=== PATIENT | male | born 1935 | race Caucasian/White ===

== ENCOUNTER 2019-11-10 04:55 | Outpatient (RCR) | payer MEDICARE, SELFPAY ==
[2019-11-10 09:11] LABS: Abs Immature Grans 0.01 k/cumm (0.0-0.09); Absolute Basophil Count 0.04 k/cumm (0.0-0.2); Absolute Eosinophil Count 0.17 k/cumm (0.0-0.7); Absolute Lymphocyte Count 2.55 k/cumm (1.2-3.4); Absolute Monocyte Count 0.74 k/cumm (0.11-0.7); Absolute Neutrophil Count 1.55 k/cumm (1.2-6.7); Basophils % 0.8; Eosinophils % 3.4; HCT 37.3 % (40.0-50.0); HGB 12.4 g/dL (13.5-17.5); Immature Grans % 0.2; Lymphocytes % 50.4; Mean Corp. HGB Concentration 33.2 g/dL (32.0-36.0); Mean Corpuscular Volume 90.1 fL (80-95); Mean Platelet Volume 9.3 fL (8.0-11.0); Monocytes % 14.6; Neutrophils % 30.6; Platelet Count 202 x1000/uL (130-400); RBC 4.14 m/cumm (4.50-6.00); RBC Distribution Width 14.7 % (11.8-14.1); White Blood Cell Count 5.06 k/cumm (4.4-10.8)
[2019-11-10] MEDS: Normal Saline Flush 10 ML SYR IVP (09:11)
[2019-11-10 09:28] LABS: ALT 21 U/L (16-63); AST 23 U/L (15-37); Albumin 2.9 g/dL (3.4-5.0); Alkaline Phosphatase 52 U/L (46-116); Anion Gap 7.5 mmol/L (3-11); BUN 26 mg/dL (7-18); Bilirubin, Total 0.5 mg/dL (0.2-1.0); CO2 28.5 mmol/L (21.0-32.0); CREATININE 1.01 mg/dL (0.70-1.30); Calcium 8.6 mg/dL (8.5-10.1); Chloride 104 mmol/L (98-107); Glucose 105 mg/dL (74-106); Potassium 3.3 mmol/L (3.5-5.1); Sodium 140 mmol/L (136-145); Total Protein 6.8 g/dL (6.4-8.2)
[2019-11-10 09:29] LABS: Diff Comment Diff Reviewed; RBC Morphology Normal
[2019-11-13 12:29] LABS: CEA 38.1 ng/mL (See Note)
== END 2019-11-14 23:59 | disposition home or self-care (01) ==
LOC: INF 04:55
PROVIDERS: PCP Family Medicine; Visit Provider Internal Medicine Hematology & Oncology
DX: C20 Malignant neoplasm of rectum (principal); Z45.2 Encounter for adjustment and management of vascular access device
CPT/HCPCS: 36591; 80053; 82378; 85025

== ENCOUNTER 2019-12-08 05:22 | Outpatient (RCR) | payer MEDICARE, SELFPAY ==
[2019-11-24] MEDS: Normal Saline Flush 10 ML SYR IVP (10:24)
[2019-11-24 10:52] LABS: Abs Immature Grans 0.01 k/cumm (0.0-0.09); Absolute Basophil Count 0.04 k/cumm (0.0-0.2); Absolute Eosinophil Count 0.15 k/cumm (0.0-0.7); Absolute Lymphocyte Count 3.41 k/cumm (1.2-3.4); Absolute Monocyte Count 0.69 k/cumm (0.11-0.7); Absolute Neutrophil Count 1.33 k/cumm (1.2-6.7); Basophils % 0.7; Eosinophils % 2.7; HCT 38.2 % (40.0-50.0); HGB 12.6 g/dL (13.5-17.5); Immature Grans % 0.2 %; Lymphocytes % 60.6; Mean Corpuscular Hemoglobin 30.1 pg (27.0-33.0); Mean Corpuscular Volume 91.4 fL (80-95); Mean Platelet Volume 9.2 fL (8.0-11.0); Monocytes % 12.3; Neutrophils % 23.5; Platelet Count 165 x1000/uL (130-400); RBC 4.18 m/cumm (4.50-6.00); RBC Distribution Width 15.5 % (11.8-14.1); White Blood Cell Count 5.63 k/cumm (4.4-10.8)
[2019-11-24 11:04] LABS: ALT 25 U/L (16-63); AST 21 U/L (15-37); Albumin 3.2 g/dL (3.4-5.0); Alkaline Phosphatase 54 U/L (46-116); Anion Gap 8.7 mmol/L (3-11); BUN 19 mg/dL (7-18); Bilirubin, Total 0.4 mg/dL (0.2-1.0); CO2 28.3 mmol/L (21.0-32.0); CREATININE 1.13 mg/dL (0.70-1.30); Calcium 8.9 mg/dL (8.5-10.1); Chloride 105 mmol/L (98-107); Glucose 111 mg/dL (74-106); Potassium 3.8 mmol/L (3.5-5.1); Sodium 142 mmol/L (136-145); Total Protein 6.9 g/dL (6.4-8.2)
[2019-11-27 12:26] LABS: CEA 18.4 ng/mL (See Note)
[2019-12-08] MEDS: Normal Saline Flush 10 ML SYR IVP (09:23)
[2019-12-08 09:37] LABS: Abs Immature Grans 0.01 k/cumm (0.0-0.09); Absolute Basophil Count 0.03 k/cumm (0.0-0.2); Absolute Eosinophil Count 0.08 k/cumm (0.0-0.7); Absolute Lymphocyte Count 3.09 k/cumm (1.2-3.4); Absolute Monocyte Count 0.85 k/cumm (0.11-0.7); Absolute Neutrophil Count 1.22 k/cumm (1.2-6.7); Basophils % 0.6; Eosinophils % 1.5; HGB 12.2 g/dL (13.5-17.5); Immature Grans % 0.2 %; Lymphocytes % 58.5; Mean Corpuscular Volume 91.1 fL (80-95); Mean Platelet Volume 8.9 fL (8.0-11.0); Monocytes % 16.1; Neutrophils % 23.1; Platelet Count 148 x1000/uL (130-400); RBC 4.06 m/cumm (4.50-6.00); RBC Distribution Width 16.1 % (11.8-14.1); White Blood Cell Count 5.28 k/cumm (4.4-10.8)
[2019-12-08 09:46] LABS: ALT 26 U/L (16-63); AST 23 U/L (15-37); Albumin 3.1 g/dL (3.4-5.0); Alkaline Phosphatase 49 U/L (46-116); Anion Gap 7.1 mmol/L (3-11); BUN 18 mg/dL (7-18); Bilirubin, Total 0.5 mg/dL (0.2-1.0); CO2 28.9 mmol/L (21.0-32.0); CREATININE 0.92 mg/dL (0.70-1.30); Chloride 105 mmol/L (98-107); Glucose 107 mg/dL (74-106); Potassium 3.9 mmol/L (3.5-5.1); Sodium 141 mmol/L (136-145); Total Protein 6.8 g/dL (6.4-8.2)
[2019-12-11 11:05] LABS: CEA 8.7 ng/mL (See Note)
== END 2019-12-15 23:59 | disposition home or self-care (01) ==
LOC: INF 05:22
PROVIDERS: PCP Family Medicine; Visit Provider Internal Medicine Hematology & Oncology
DX: C20 Malignant neoplasm of rectum (principal); Z45.2 Encounter for adjustment and management of vascular access device
CPT/HCPCS: 36591; 80053; 82378; 85025

== ENCOUNTER 2020-01-12 04:31 | Outpatient (RCR) | payer MEDICARE, SELFPAY ==
[2019-12-22] MEDS: Normal Saline Flush 10 ML SYR IVP (08:21)
[2019-12-22 08:31] LABS: Abs Immature Grans 0.01 k/cumm (0.0-0.09); Absolute Basophil Count 0.04 k/cumm (0.0-0.2); Absolute Eosinophil Count 0.09 k/cumm (0.0-0.7); Absolute Lymphocyte Count 2.69 k/cumm (1.2-3.4); Absolute Monocyte Count 0.64 k/cumm (0.11-0.7); Absolute Neutrophil Count 0.81 k/cumm (1.2-6.7); Basophils % 0.9; Eosinophils % 2.1; HCT 37.9 % (40.0-50.0); HGB 12.6 g/dL (13.5-17.5); Immature Grans % 0.2 %; Lymphocytes % 62.9; Mean Corp. HGB Concentration 33.2 g/dL (32.0-36.0); Mean Corpuscular Hemoglobin 30.4 pg (27.0-33.0); Mean Corpuscular Volume 91.5 fL (80-95); Mean Platelet Volume 9.2 fL (8.0-11.0); Neutrophils % 18.9; Platelet Count 134 x1000/uL (130-400); RBC 4.14 m/cumm (4.50-6.00); RBC Distribution Width 16.9 % (11.8-14.1); White Blood Cell Count 4.28 k/cumm (4.4-10.8)
[2019-12-22 08:47] LABS: ALT 33 U/L (16-63); AST 28 U/L (15-37); Albumin 3.2 g/dL (3.4-5.0); Alkaline Phosphatase 43 U/L (46-116); Anion Gap 10.8 mmol/L (3-11); BUN 19 mg/dL (7-18); Bilirubin, Total 0.4 mg/dL (0.2-1.0); CO2 26.2 mmol/L (21.0-32.0); CREATININE 1.06 mg/dL (0.70-1.30); Calcium 8.6 mg/dL (8.5-10.1); Chloride 103 mmol/L (98-107); Glucose 99 mg/dL (74-106); Potassium 3.7 mmol/L (3.5-5.1); Sodium 140 mmol/L (136-145); Total Protein 7.1 g/dL (6.4-8.2)
[2019-12-22 09:11] LABS: Diff Comment Diff Reviewed; RBC Morphology Normal
[2019-12-25 09:58] LABS: CEA 3.8 ng/mL (See Note)
[2019-12-29 08:03] LABS: Abs Immature Grans 0.07 k/cumm (0.0-0.09); Absolute Basophil Count 0.06 k/cumm (0.0-0.2); Absolute Eosinophil Count 0.15 k/cumm (0.0-0.7); Absolute Monocyte Count 1.12 k/cumm (0.11-0.7); Eosinophils % 2.5; HCT 38.7 % (40.0-50.0); HGB 12.8 g/dL (13.5-17.5); Immature Grans % 1.2 %; Lymphocytes % 56.7; Mean Corp. HGB Concentration 33.1 g/dL (32.0-36.0); Mean Corpuscular Hemoglobin 30.3 pg (27.0-33.0); Mean Corpuscular Volume 91.7 fL (80-95); Mean Platelet Volume 9.1 fL (8.0-11.0); Monocytes % 18.7; Neutrophils % 19.9; Platelet Count 207 x1000/uL (130-400); RBC 4.22 m/cumm (4.50-6.00); RBC Distribution Width 17.6 % (11.8-14.1)
[2019-12-29] MEDS: Normal Saline Flush 10 ML SYR IVP (08:06)
[2019-12-29 08:21] LABS: ALT 30 U/L (16-63); AST 23 U/L (15-37); Albumin 3.3 g/dL (3.4-5.0); Alkaline Phosphatase 49 U/L (46-116); Anion Gap 8.4 mmol/L (3-11); BUN 19 mg/dL (7-18); Bilirubin, Total 0.5 mg/dL (0.2-1.0); CO2 28.6 mmol/L (21.0-32.0); CREATININE 1.01 mg/dL (0.70-1.30); Calcium 9.2 mg/dL (8.5-10.1); Chloride 105 mmol/L (98-107); Glucose 108 mg/dL (74-106); Potassium 3.4 mmol/L (3.5-5.1); Sodium 142 mmol/L (136-145); Total Protein 7.3 g/dL (6.4-8.2)
[2020-01-01 11:10] LABS: CEA 2.9 ng/mL (See Note)
[2020-01-12] MEDS: Normal Saline Flush 10 ML SYR IVP (07:17)
[2020-01-12 07:18] LABS: Abs Immature Grans 0.01 k/cumm (0.0-0.09); Absolute Basophil Count 0.03 k/cumm (0.0-0.2); Absolute Eosinophil Count 0.22 k/cumm (0.0-0.7); Absolute Lymphocyte Count 2.64 k/cumm (1.2-3.4); Absolute Monocyte Count 0.72 k/cumm (0.11-0.7); Absolute Neutrophil Count 1.68 k/cumm (1.2-6.7); Basophils % 0.6; Eosinophils % 4.2; HCT 37.4 % (40.0-50.0); HGB 12.5 g/dL (13.5-17.5); Immature Grans % 0.2 %; Lymphocytes % 49.8; Mean Corp. HGB Concentration 33.4 g/dL (32.0-36.0); Mean Corpuscular Hemoglobin 31.1 pg (27.0-33.0); Mean Platelet Volume 9.5 fL (8.0-11.0); Monocytes % 13.6; Neutrophils % 31.6; Platelet Count 135 x1000/uL (130-400); RBC 4.02 m/cumm (4.50-6.00); RBC Distribution Width 17.7 % (11.8-14.1)
[2020-01-12 07:24] LABS: ALT 34 U/L (16-63); AST 29 U/L (15-37); Albumin 3.3 g/dL (3.4-5.0); Alkaline Phosphatase 43 U/L (46-116); Anion Gap 8.7 mmol/L (3-11); BUN 16 mg/dL (7-18); Bilirubin, Total 0.4 mg/dL (0.2-1.0); CO2 26.3 mmol/L (21.0-32.0); CREATININE 1.06 mg/dL (0.70-1.30); Calcium 8.1 mg/dL (8.5-10.1); Chloride 104 mmol/L (98-107); Glucose 111 mg/dL (74-106); Potassium 3.7 mmol/L (3.5-5.1); Sodium 139 mmol/L (136-145); Total Protein 7.2 g/dL (6.4-8.2)
[2020-01-15 09:39] LABS: CEA 1.9 ng/mL (See Note)
== END 2020-01-13 23:59 | disposition home or self-care (01) ==
LOC: INF 04:31
PROVIDERS: PCP Family Medicine; Visit Provider Internal Medicine Hematology & Oncology
DX: C20 Malignant neoplasm of rectum (principal); Z45.2 Encounter for adjustment and management of vascular access device
CPT/HCPCS: 36591; 80053; 82378; 85025

== ENCOUNTER 2020-02-09 03:45 | Outpatient (RCR) | payer MEDICARE, SELFPAY ==
[2020-01-26] MEDS: Normal Saline Flush 10 ML SYR IVP (09:32)
[2020-01-26 09:44] LABS: Absolute Basophil Count 0.03 k/cumm (0.0-0.2); Absolute Eosinophil Count 0.07 k/cumm (0.0-0.7); Absolute Lymphocyte Count 2.16 k/cumm (1.2-3.4); Absolute Monocyte Count 0.72 k/cumm (0.11-0.7); Basophils % 0.7; Eosinophils % 1.7; HCT 38.2 % (40.0-50.0); HGB 12.6 g/dL (13.5-17.5); Lymphocytes % 52.9; Mean Corpuscular Volume 93.9 fL (80-95); Mean Platelet Volume 9.1 fL (8.0-11.0); Monocytes % 17.6; Neutrophils % 27.1; Platelet Count 126 x1000/uL (130-400); RBC 4.07 m/cumm (4.50-6.00); RBC Distribution Width 17.6 % (11.8-14.1); White Blood Cell Count 4.08 k/cumm (4.4-10.8)
[2020-01-26 09:47] LABS: Absolute Neutrophil Count 1.11 k/cumm (1.2-6.7)
[2020-01-26 09:56] LABS: ALT 34 U/L (16-63); AST 26 U/L (15-37); Albumin 3.3 g/dL (3.4-5.0); Alkaline Phosphatase 51 U/L (46-116); Anion Gap 6.4 mmol/L (3-11); BUN 19 mg/dL (7-18); Bilirubin, Total 0.6 mg/dL (0.2-1.0); CO2 30.6 mmol/L (21.0-32.0); CREATININE 1.03 mg/dL (0.70-1.30); Chloride 102 mmol/L (98-107); Glucose 125 mg/dL (74-106); Potassium 3.6 mmol/L (3.5-5.1); Sodium 139 mmol/L (136-145); Total Protein 7.4 g/dL (6.4-8.2)
[2020-01-29 11:08] LABS: CEA 1.7 ng/mL (See Note)
[2020-02-02 09:43] LABS: Abs Immature Grans 0.01 k/cumm (0.0-0.09); Absolute Basophil Count 0.04 k/cumm (0.0-0.2); Absolute Lymphocyte Count 3.04 k/cumm (1.2-3.4); Absolute Monocyte Count 0.75 k/cumm (0.11-0.7); Absolute Neutrophil Count 0.97 k/cumm (1.2-6.7); Basophils % 0.8; HGB 12.6 g/dL (13.5-17.5); Immature Grans % 0.2 %; Lymphocytes % 61.9; Mean Corp. HGB Concentration 34.1 g/dL (32.0-36.0); Mean Corpuscular Hemoglobin 32.1 pg (27.0-33.0); Mean Corpuscular Volume 94.4 fL (80-95); Mean Platelet Volume 9.4 fL (8.0-11.0); Monocytes % 15.3; Neutrophils % 19.8; Platelet Count 203 x1000/uL (130-400); RBC 3.92 m/cumm (4.50-6.00); RBC Distribution Width 17.3 % (11.8-14.1); White Blood Cell Count 4.91 k/cumm (4.4-10.8)
[2020-02-02 09:54] LABS: ALT 34 U/L (16-63); AST 30 U/L (15-37); Albumin 3.1 g/dL (3.4-5.0); Alkaline Phosphatase 51 U/L (46-116); BUN 20 mg/dL (7-18); Bilirubin, Total 0.4 mg/dL (0.2-1.0); CREATININE 1.08 mg/dL (0.70-1.30); Calcium 8.6 mg/dL (8.5-10.1); Chloride 104 mmol/L (98-107); Glucose 115 mg/dL (74-106); Potassium 3.3 mmol/L (3.5-5.1); Sodium 142 mmol/L (136-145); Total Protein 7.5 g/dL (6.4-8.2)
[2020-02-02] MEDS: Normal Saline Flush 10 ML SYR IVP (10:03)
[2020-02-05 11:06] LABS: CEA 1.3 ng/mL (See Note)
[2020-02-09] MEDS: Normal Saline Flush 10 ML SYR IVP (09:35)
[2020-02-09 10:11] LABS: Abs Immature Grans 0.03 k/cumm (0.0-0.09); Absolute Basophil Count 0.02 k/cumm (0.0-0.2); Absolute Lymphocyte Count 2.96 k/cumm (1.2-3.4); Absolute Monocyte Count 0.82 k/cumm (0.11-0.7); Absolute Neutrophil Count 2.43 k/cumm (1.2-6.7); Basophils % 0.3; Eosinophils % 1.6; HCT 39.4 % (40.0-50.0); HGB 13.2 g/dL (13.5-17.5); Immature Grans % 0.5 %; Lymphocytes % 46.5; Mean Corp. HGB Concentration 33.5 g/dL (32.0-36.0); Mean Corpuscular Volume 95.4 fL (80-95); Mean Platelet Volume 9.2 fL (8.0-11.0); Monocytes % 12.9; Neutrophils % 38.2; Platelet Count 204 x1000/uL (130-400); RBC 4.13 m/cumm (4.50-6.00); RBC Distribution Width 16.9 % (11.8-14.1); White Blood Cell Count 6.36 k/cumm (4.4-10.8)
[2020-02-09 10:27] LABS: ALT 36 U/L (16-63); AST 29 U/L (15-37); Albumin 3.3 g/dL (3.4-5.0); Alkaline Phosphatase 51 U/L (46-116); Anion Gap 9.5 mmol/L (3-11); BUN 20 mg/dL (7-18); Bilirubin, Total 0.4 mg/dL (0.2-1.0); CO2 28.5 mmol/L (21.0-32.0); CREATININE 1.02 mg/dL (0.70-1.30); Calcium 9.5 mg/dL (8.5-10.1); Chloride 103 mmol/L (98-107); Glucose 122 mg/dL (74-106); Potassium 3.8 mmol/L (3.5-5.1); Sodium 141 mmol/L (136-145); Total Protein 7.8 g/dL (6.4-8.2)
[2020-02-12 10:20] LABS: CEA 1.4 ng/mL (See Note)
== END 2020-02-13 23:59 | disposition home or self-care (01) ==
LOC: INF 03:45
PROVIDERS: PCP Family Medicine; Visit Provider Internal Medicine Hematology & Oncology
DX: C20 Malignant neoplasm of rectum (principal); Z45.2 Encounter for adjustment and management of vascular access device
CPT/HCPCS: 36591; 80053; 82378; 85025

== ENCOUNTER 2020-02-23 03:32 | Outpatient (RCR) | payer MEDICARE, SELFPAY ==
[2020-02-23] MEDS: Normal Saline Flush 10 ML SYR IVP (08:45)
[2020-02-23 08:51] LABS: Abs Immature Grans 0.09 k/cumm (0.0-0.09); Absolute Basophil Count 0.02 k/cumm (0.0-0.2); Absolute Eosinophil Count 0.15 k/cumm (0.0-0.7); Absolute Lymphocyte Count 2.74 k/cumm (1.2-3.4); Absolute Monocyte Count 1.11 k/cumm (0.11-0.7); Absolute Neutrophil Count 4.78 k/cumm (1.2-6.7); Basophils % 0.2; Eosinophils % 1.7; HCT 38.2 % (40.0-50.0); Lymphocytes % 30.8; Mean Corpuscular Hemoglobin 32.6 pg (27.0-33.0); Mean Corpuscular Volume 95.7 fL (80-95); Mean Platelet Volume 8.9 fL (8.0-11.0); Monocytes % 12.5; Neutrophils % 53.8; Platelet Count 125 x1000/uL (130-400); RBC 3.99 m/cumm (4.50-6.00); RBC Distribution Width 16.6 % (11.8-14.1); White Blood Cell Count 8.89 k/cumm (4.4-10.8)
[2020-02-23 09:06] LABS: ALT 39 U/L (16-63); AST 32 U/L (15-37); Albumin 3.3 g/dL (3.4-5.0); Alkaline Phosphatase 89 U/L (46-116); Anion Gap 8.2 mmol/L (3-11); BUN 16 mg/dL (7-18); Bilirubin, Total 0.6 mg/dL (0.2-1.0); CO2 28.8 mmol/L (21.0-32.0); CREATININE 1.14 mg/dL (0.70-1.30); Calcium 9.1 mg/dL (8.5-10.1); Chloride 102 mmol/L (98-107); Glucose 119 mg/dL (74-106); Sodium 139 mmol/L (136-145); Total Protein 7.5 g/dL (6.4-8.2)
[2020-02-27 18:31] LABS: CEA 0.8 ng/mL (See Note)
== END 2020-03-14 23:59 | disposition home or self-care (01) ==
LOC: INF 03:32
PROVIDERS: PCP Family Medicine; Visit Provider Internal Medicine Hematology & Oncology
DX: C20 Malignant neoplasm of rectum (principal); Z45.2 Encounter for adjustment and management of vascular access device
CPT/HCPCS: 36591; 80053; 82378; 85025

== ENCOUNTER 2020-03-15 04:00 | Outpatient (RCR) | payer MEDICARE, SELFPAY | END 2020-04-14 23:59 | disposition home or self-care (01) | LOC: INF 04:00 | PROVIDERS: PCP Family Medicine; Visit Provider Internal Medicine Hematology & Oncology | DX: R69 Illness, unspecified (principal) ==

== ENCOUNTER 2020-05-10 04:16 | Outpatient (RCR) | payer MEDICARE, SELFPAY ==
[2020-04-26 10:10] LABS: Abs Immature Grans 0.01 k/cumm (0.0-0.09); HCT 33.3 % (40.0-50.0); HGB 10.8 g/dL (13.5-17.5); Mean Corp. HGB Concentration 32.4 g/dL (32.0-36.0); Mean Corpuscular Hemoglobin 30.5 pg (27.0-33.0); Mean Corpuscular Volume 94.1 fL (80-95); Mean Platelet Volume 8.7 fL (8.0-11.0); Platelet Count 234 x1000/uL (130-400); RBC 3.54 m/cumm (4.50-6.00); RBC Distribution Width 15.1 % (11.8-14.1); White Blood Cell Count 8.85 k/cumm (4.4-10.8)
[2020-04-26] MEDS: Normal Saline Flush 10 ML SYR IVP (10:20)
[2020-04-26 10:27] LABS: ALT 32 U/L (16-63); AST 32 U/L (15-37); Albumin 2.8 g/dL (3.4-5.0); Alkaline Phosphatase 67 U/L (46-116); Anion Gap 7.8 mmol/L (3-11); BUN 13 mg/dL (7-18); Bilirubin, Total 0.4 mg/dL (0.2-1.0); CO2 28.2 mmol/L (21.0-32.0); CREATININE 0.95 mg/dL (0.70-1.30); Calcium 8.7 mg/dL (8.5-10.1); Chloride 103 mmol/L (98-107); Glucose 107 mg/dL (74-106); Potassium 3.5 mmol/L (3.5-5.1); Sodium 139 mmol/L (136-145); Total Protein 7.4 g/dL (6.4-8.2)
[2020-04-26 10:49] LABS: Absolute Eosinophil Count 0.35 k/cumm (0.0-0.7); Absolute Lymphocyte Count 5.93 k/cumm (1.2-3.4); Absolute Monocyte Count 0.53 k/cumm (0.11-0.7); Absolute Neutrophil Count 2.04 k/cumm (1.2-6.7); Atypical Lymphocytes % 1; Diff Comment Manual Differential; RBC Morphology Normal
[2020-04-29 10:37] LABS: CEA 3.6 ng/mL (See Note)
[2020-05-10] MEDS: Heparin 500 UNITS/5 ML SYRINGE IV (10:01)
[2020-05-10] MEDS: Normal Saline Flush 10 ML SYR IVP (10:01)
[2020-05-10 10:11] LABS: Abs Immature Grans 0.03 k/cumm (0.0-0.09); Absolute Basophil Count 0.03 k/cumm (0.0-0.2); Absolute Eosinophil Count 0.14 k/cumm (0.0-0.7); Absolute Monocyte Count 0.92 k/cumm (0.11-0.7); Absolute Neutrophil Count 3.21 k/cumm (1.2-6.7); Basophils % 0.3; Eosinophils % 1.5; HCT 36.1 % (40.0-50.0); HGB 11.6 g/dL (13.5-17.5); Immature Grans % 0.3 %; Mean Corp. HGB Concentration 32.1 g/dL (32.0-36.0); Mean Corpuscular Hemoglobin 30.7 pg (27.0-33.0); Mean Corpuscular Volume 95.5 fL (80-95); Mean Platelet Volume 9.6 fL (8.0-11.0); Monocytes % 9.6; Neutrophils % 33.3; Platelet Count 138 x1000/uL (130-400); RBC 3.78 m/cumm (4.50-6.00); RBC Distribution Width 16.8 % (11.8-14.1); White Blood Cell Count 9.63 k/cumm (4.4-10.8)
[2020-05-10 10:25] LABS: ALT 31 U/L (16-63); AST 30 U/L (15-37); Albumin 3.1 g/dL (3.4-5.0); Alkaline Phosphatase 90 U/L (46-116); Anion Gap 9.6 mmol/L (3-11); BUN 19 mg/dL (7-18); Bilirubin, Total 0.4 mg/dL (0.2-1.0); CO2 27.4 mmol/L (21.0-32.0); CREATININE 1.15 mg/dL (0.70-1.30); Calcium 8.9 mg/dL (8.5-10.1); Chloride 103 mmol/L (98-107); Glucose 110 mg/dL (74-106); Potassium 4.1 mmol/L (3.5-5.1); Sodium 140 mmol/L (136-145); Total Protein 7.6 g/dL (6.4-8.2)
[2020-05-10 10:27] LABS: Diff Comment Agrees w/ Instrument; Polychromasia Present
== END 2020-05-14 23:59 | disposition home or self-care (01) ==
LOC: INF 04:16
PROVIDERS: Internal Medicine Hematology & Oncology; PCP Family Medicine; Visit Provider Internal Medicine
DX: Z45.2 Encounter for adjustment and management of vascular access device (principal); C79.9 Secondary malignant neoplasm of unspecified site; C20 Malignant neoplasm of rectum
CPT/HCPCS: 36591; 80053; 82378; 85025

== ENCOUNTER 2020-06-07 04:24 | Outpatient (RCR) | payer MEDICARE, SELFPAY ==
[2020-05-24] MEDS: Normal Saline Flush 10 ML SYR IVP (08:29)
[2020-05-24 08:40] LABS: Abs Immature Grans 0.01 k/cumm (0.0-0.09); Absolute Basophil Count 0.03 k/cumm (0.0-0.2); Absolute Lymphocyte Count 4.33 k/cumm (1.2-3.4); Absolute Monocyte Count 0.73 k/cumm (0.11-0.7); Absolute Neutrophil Count 1.17 k/cumm (1.2-6.7); Basophils % 0.5; Eosinophils % 1.6; HCT 33.7 % (40.0-50.0); HGB 10.8 g/dL (13.5-17.5); Immature Grans % 0.2 %; Mean Corpuscular Hemoglobin 30.4 pg (27.0-33.0); Mean Corpuscular Volume 94.9 fL (80-95); Mean Platelet Volume 9.3 fL (8.0-11.0); Monocytes % 11.5; Neutrophils % 18.2; Platelet Count 182 x1000/uL (130-400); RBC 3.55 m/cumm (4.50-6.00); RBC Distribution Width 16.6 % (11.8-14.1); White Blood Cell Count 6.37 k/cumm (4.4-10.8)
[2020-05-24 08:50] LABS: ALT 25 U/L (16-63); AST 23 U/L (15-37); Albumin 2.9 g/dL (3.4-5.0); Alkaline Phosphatase 63 U/L (46-116); Anion Gap 7.9 mmol/L (3-11); BUN 16 mg/dL (7-18); Bilirubin, Total 0.3 mg/dL (0.2-1.0); CO2 26.1 mmol/L (21.0-32.0); CREATININE 0.94 mg/dL (0.70-1.30); Calcium 8.6 mg/dL (8.5-10.1); Chloride 106 mmol/L (98-107); Glucose 111 mg/dL (74-106); Potassium 3.9 mmol/L (3.5-5.1); Sodium 140 mmol/L (136-145); Total Protein 7.1 g/dL (6.4-8.2)
[2020-05-27 13:32] LABS: CEA 1.7 ng/mL (See Note)
[2020-06-07] MEDS: Normal Saline Flush 10 ML SYR IVP (08:25)
[2020-06-07 08:36] LABS: Abs Immature Grans 0.04 k/cumm (0.0-0.09); Absolute Basophil Count 0.03 k/cumm (0.0-0.2); Absolute Eosinophil Count 0.18 k/cumm (0.0-0.7); Absolute Lymphocyte Count 4.09 k/cumm (1.2-3.4); Absolute Monocyte Count 0.84 k/cumm (0.11-0.7); Absolute Neutrophil Count 4.54 k/cumm (1.2-6.7); Basophils % 0.3; Eosinophils % 1.9; HGB 11.4 g/dL (13.5-17.5); Immature Grans % 0.4 %; Lymphocytes % 42.1; Mean Corp. HGB Concentration 31.7 g/dL (32.0-36.0); Mean Corpuscular Hemoglobin 30.1 pg (27.0-33.0); Monocytes % 8.6; Neutrophils % 46.7; Platelet Count 126 x1000/uL (130-400); RBC 3.79 m/cumm (4.50-6.00); RBC Distribution Width 17.8 % (11.8-14.1); White Blood Cell Count 9.72 k/cumm (4.4-10.8)
[2020-06-07 08:52] LABS: ALT 27 U/L (16-63); AST 21 U/L (15-37); Alkaline Phosphatase 100 U/L (46-116); Anion Gap 11.1 mmol/L (3-11); BUN 22 mg/dL (7-18); Bilirubin, Total 0.3 mg/dL (0.2-1.0); CO2 24.9 mmol/L (21.0-32.0); CREATININE 0.98 mg/dL (0.70-1.30); Calcium 8.9 mg/dL (8.5-10.1); Chloride 103 mmol/L (98-107); Glucose 99 mg/dL (74-106); Potassium 3.7 mmol/L (3.5-5.1); Sodium 139 mmol/L (136-145); Total Protein 7.3 g/dL (6.4-8.2)
[2020-06-10 09:20] LABS: CEA 0.9 ng/mL (See Note)
== END 2020-06-14 23:59 | disposition home or self-care (01) ==
LOC: INF 04:24
PROVIDERS: PCP Family Medicine; Visit Provider Internal Medicine Hematology & Oncology
DX: C20 Malignant neoplasm of rectum (principal); C79.9 Secondary malignant neoplasm of unspecified site; Z45.2 Encounter for adjustment and management of vascular access device; C18.9 Malignant neoplasm of colon, unspecified
CPT/HCPCS: 36591; 80053; 82378; 85025

== ENCOUNTER 2020-07-12 04:34 | Outpatient (RCR) | payer MEDICARE, SELFPAY ==
[2020-06-21] MEDS: Normal Saline Flush 10 ML SYR IVP (09:25)
[2020-06-21 09:36] LABS: Abs Immature Grans 0.05 10^3/uL (0.0-0.06); Absolute Basophil Count 0.06 10^3/uL (0.0-0.2); Absolute Eosinophil Count 0.19 10^3/uL (0.0-0.7); Absolute Lymphocyte Count 3.33 10^3/uL (1.2-3.4); Absolute Monocyte Count 0.85 10^3/uL (0.1-0.8); Absolute Neutrophil Count 4.68 10^3/uL (1.2-6.7); Basophils % 0.7; Eosinophils % 2.1; HCT 36.4 % (40.0-50.0); HGB 11.9 g/dL (13.5-17.5); Immature Grans % 0.5; Lymphocytes % 36.4; MCH 30.6 pg (27.0-33.0); MCHC 32.7 % (32.0-36.0); MCV 93.6 fL (80-95); MPV 9.1 fL (8.0-11.0); Monocytes % 9.3; Nucleated RBC 0 %; Platelet Count 173 10^3/uL (130-400); RBC 3.89 10^6/uL (4.36-5.78); RDW 18.5 % (11.8-14.1); WBC 9.16 10^3/uL (4.4-10.8)
[2020-06-21 09:59] LABS: ALT 32 U/L (16-63); AST 23 U/L (15-37); Albumin 3.2 g/dL (3.4-5.0); Alkaline Phosphatase 110 U/L (46-116); Anion Gap 7.5 mmol/L (3-11); BUN 21 mg/dL (7-18); Bilirubin, Total 0.4 mg/dL (0.2-1.0); CO2 28.5 mmol/L (21.0-32.0); CREATININE 1.03 mg/dL (0.70-1.30); Calcium 9.1 mg/dL (8.5-10.1); Chloride 104 mmol/L (98-107); Glucose 111 mg/dL (74-106); Potassium 3.8 mmol/L (3.5-5.1); Sodium 140 mmol/L (136-145); Total Protein 7.4 g/dL (6.4-8.2)
[2020-06-24 09:18] LABS: CEA 1.4 ng/mL (See Note)
[2020-06-28] MEDS: Normal Saline Flush 10 ML SYR IVP (08:09)
[2020-06-28 08:12] LABS: Abs Immature Grans 0.02 10^3/uL (0.0-0.06); Absolute Basophil Count 0.05 10^3/uL (0.0-0.2); Absolute Eosinophil Count 0.19 10^3/uL (0.0-0.7); Absolute Lymphocyte Count 4.28 10^3/uL (1.2-3.4); Absolute Monocyte Count 0.82 10^3/uL (0.1-0.8); Basophils % 0.6; Eosinophils % 2.2; HCT 35.5 % (40.0-50.0); HGB 11.7 g/dL (13.5-17.5); Immature Grans % 0.2; MCH 31.1 pg (27.0-33.0); MCV 94.4 fL (80-95); MPV 9.2 fL (8.0-11.0); Monocytes % 9.6; Neutrophils % 37.4; Nucleated RBC 0 %; Platelet Count 189 10^3/uL (130-400); RBC 3.76 10^6/uL (4.36-5.78); RDW 17.9 % (11.8-14.1); RDW-SD 61.4 fL; WBC 8.56 10^3/uL (4.4-10.8)
[2020-06-28 08:37] LABS: ALT 33 U/L (16-63); AST 24 U/L (15-37); Albumin 3.2 g/dL (3.4-5.0); Alkaline Phosphatase 74 U/L (46-116); Anion Gap 9.5 mmol/L (3-11); BUN 19 mg/dL (7-18); Bilirubin, Total 0.4 mg/dL (0.2-1.0); CO2 26.5 mmol/L (21.0-32.0); Calcium 8.7 mg/dL (8.5-10.1); Chloride 103 mmol/L (98-107); Glucose 110 mg/dL (74-106); Potassium 3.7 mmol/L (3.5-5.1); Sodium 139 mmol/L (136-145); Total Protein 7.2 g/dL (6.4-8.2)
[2020-07-01 09:08] LABS: CEA 2.2 ng/mL (See Note)
[2020-07-12] MEDS: Normal Saline Flush 10 ML SYR IVP (08:45)
[2020-07-12 08:59] LABS: Abs Immature Grans 0.05 10^3/uL (0.0-0.06); Absolute Basophil Count 0.03 10^3/uL (0.0-0.2); Absolute Eosinophil Count 0.18 10^3/uL (0.0-0.7); Absolute Lymphocyte Count 3.18 10^3/uL (1.2-3.4); Absolute Monocyte Count 0.81 10^3/uL (0.1-0.8); Absolute Neutrophil Count 5.64 10^3/uL (1.2-6.7); Basophils % 0.3; Eosinophils % 1.8; HCT 36.6 % (40.0-50.0); Immature Grans % 0.5; Lymphocytes % 32.2; MCHC 32.8 % (32.0-36.0); MCV 94.6 fL (80-95); MPV 9.6 fL (8.0-11.0); Monocytes % 8.2; Nucleated RBC 0 %; Platelet Count 148 10^3/uL (130-400); RBC 3.87 10^6/uL (4.36-5.78); RDW 18.6 % (11.8-14.1); WBC 9.89 10^3/uL (4.4-10.8)
[2020-07-12 09:22] LABS: ALT 26 U/L (16-63); AST 19 U/L (15-37); Albumin 3.1 g/dL (3.4-5.0); Alkaline Phosphatase 116 U/L (46-116); Anion Gap 8.6 mmol/L (3-11); BUN 15 mg/dL (7-18); Bilirubin, Total 0.5 mg/dL (0.2-1.0); CO2 28.4 mmol/L (21.0-32.0); Chloride 104 mmol/L (98-107); Glucose 123 mg/dL (74-106); Potassium 3.6 mmol/L (3.5-5.1); Sodium 141 mmol/L (136-145); Total Protein 6.9 g/dL (6.4-8.2)
[2020-07-15 09:14] LABS: CEA 1.8 ng/mL (See Note)
== END 2020-07-15 23:59 | disposition home or self-care (01) ==
LOC: INF 04:34
PROVIDERS: PCP Family Medicine; Visit Provider Internal Medicine Hematology & Oncology
DX: C79.89 Secondary malignant neoplasm of other specified sites (principal); C20 Malignant neoplasm of rectum; Z45.2 Encounter for adjustment and management of vascular access device
CPT/HCPCS: 36591; 80053; 82378; 85025

== ENCOUNTER 2020-08-09 04:31 | Outpatient (RCR) | payer MEDICARE, SELFPAY ==
[2020-07-26] MEDS: Normal Saline Flush 10 ML SYR IVP (08:05)
[2020-07-26 08:14] LABS: Abs Immature Grans 0.09 10^3/uL (0.0-0.06); Absolute Basophil Count 0.05 10^3/uL (0.0-0.2); Absolute Eosinophil Count 0.31 10^3/uL (0.0-0.7); Absolute Lymphocyte Count 3.36 10^3/uL (1.2-3.4); Absolute Monocyte Count 0.68 10^3/uL (0.1-0.8); Absolute Neutrophil Count 5.33 10^3/uL (1.2-6.7); Basophils % 0.5; Eosinophils % 3.2; HCT 37.2 % (40.0-50.0); HGB 12.1 g/dL (13.5-17.5); Immature Grans % 0.9; Lymphocytes % 34.2; MCH 31.3 pg (27.0-33.0); MCHC 32.5 % (32.0-36.0); MCV 96.4 fL (80-95); MPV 9.2 fL (8.0-11.0); Monocytes % 6.9; Neutrophils % 54.3; Nucleated RBC 0 %; Platelet Count 161 10^3/uL (130-400); RBC 3.86 10^6/uL (4.36-5.78); RDW 18.6 % (11.8-14.1); RDW-SD 66.4 fL; WBC 9.82 10^3/uL (4.4-10.8)
[2020-07-26 08:30] LABS: ALT 39 U/L (16-63); AST 30 U/L (15-37); Albumin 3.1 g/dL (3.4-5.0); Alkaline Phosphatase 127 U/L (46-116); Anion Gap 8.5 mmol/L (3-11); BUN 11 mg/dL (7-18); Bilirubin, Total 0.4 mg/dL (0.2-1.0); CO2 26.5 mmol/L (21.0-32.0); CREATININE 0.97 mg/dL (0.70-1.30); Calcium 8.9 mg/dL (8.5-10.1); Chloride 103 mmol/L (98-107); Glucose 112 mg/dL (74-106); Sodium 138 mmol/L (136-145); Total Protein 6.8 g/dL (6.4-8.2)
[2020-07-29 14:59] LABS: CEA 1.7 ng/mL (See Note)
[2020-08-09] MEDS: Normal Saline Flush 10 ML SYR IVP (07:58)
[2020-08-09 08:10] LABS: Abs Immature Grans 0.05 10^3/uL (0.0-0.06); Absolute Basophil Count 0.06 10^3/uL (0.0-0.2); Absolute Eosinophil Count 0.32 10^3/uL (0.0-0.7); Absolute Lymphocyte Count 3.01 10^3/uL (1.2-3.4); Absolute Monocyte Count 0.98 10^3/uL (0.1-0.8); Absolute Neutrophil Count 5.46 10^3/uL (1.2-6.7); Basophils % 0.6; Eosinophils % 3.2; HGB 12.1 g/dL (13.5-17.5); Immature Grans % 0.5; Lymphocytes % 30.5; MCH 32.1 pg (27.0-33.0); MCHC 32.7 % (32.0-36.0); MCV 98.1 fL (80-95); MPV 9.8 fL (8.0-11.0); Monocytes % 9.9; Neutrophils % 55.3; Nucleated RBC 0 %; Platelet Count 154 10^3/uL (130-400); RBC 3.77 10^6/uL (4.36-5.78); RDW-SD 64.9 fL; WBC 9.88 10^3/uL (4.4-10.8)
[2020-08-09 08:42] LABS: ALT 45 U/L (16-63); AST 34 U/L (15-37); Albumin 3.1 g/dL (3.4-5.0); Alkaline Phosphatase 133 U/L (46-116); BUN 17 mg/dL (7-18); Bilirubin, Total 0.5 mg/dL (0.2-1.0); CREATININE 1.04 mg/dL (0.70-1.30); Calcium 8.7 mg/dL (8.5-10.1); Chloride 104 mmol/L (98-107); Glucose 108 mg/dL (74-106); Potassium 3.5 mmol/L (3.5-5.1); Sodium 140 mmol/L (136-145); Total Protein 6.9 g/dL (6.4-8.2)
[2020-08-09 21:55] LABS: CEA 2.1 ng/mL (See Note)
== END 2020-08-14 23:59 | disposition home or self-care (01) ==
LOC: INF 04:31
PROVIDERS: PCP Family Medicine; Visit Provider Internal Medicine Hematology & Oncology
DX: C20 Malignant neoplasm of rectum (principal); Z45.2 Encounter for adjustment and management of vascular access device
CPT/HCPCS: 36591; 80053; 82378; 85025

== ENCOUNTER 2020-09-06 08:30 | Outpatient (RCR) | payer MEDICARE, SELFPAY ==
[2020-08-23] MEDS: Normal Saline Flush 10 ML SYR IVP (08:29)
[2020-08-23 08:31] LABS: Abs Immature Grans 0.15 10^3/uL (0.0-0.06); Absolute Basophil Count 0.04 10^3/uL (0.0-0.2); Absolute Eosinophil Count 0.27 10^3/uL (0.0-0.7); Absolute Neutrophil Count 7.63 10^3/uL (1.2-6.7); Basophils % 0.3; Eosinophils % 2.2; HCT 36.1 % (40.0-50.0); HGB 11.9 g/dL (13.5-17.5); Immature Grans % 1.2; MCH 32.9 pg (27.0-33.0); MCV 99.7 fL (80-95); MPV 9.2 fL (8.0-11.0); Monocytes % 9.1; Neutrophils % 62.2; Nucleated RBC 0 %; Platelet Count 131 10^3/uL (130-400); RBC 3.62 10^6/uL (4.36-5.78); RDW 17.2 % (11.8-14.1); RDW-SD 62.2 fL; WBC 12.26 10^3/uL (4.4-10.8)
[2020-08-23 08:32] LABS: Absolute Lymphocyte Count 3.07 10^3/uL (1.2-3.4); Absolute Monocyte Count 1.12 10^3/uL (0.1-0.8)
[2020-08-23 08:44] LABS: ALT 42 U/L (16-63); AST 28 U/L (15-37); Alkaline Phosphatase 133 U/L (46-116); Anion Gap 8.4 mmol/L (3-11); BUN 11 mg/dL (7-18); Bilirubin, Total 0.5 mg/dL (0.2-1.0); CO2 28.6 mmol/L (21.0-32.0); Chloride 103 mmol/L (98-107); Glucose 122 mg/dL (74-106); Potassium 3.8 mmol/L (3.5-5.1); Sodium 140 mmol/L (136-145); Total Protein 6.6 g/dL (6.4-8.2)
[2020-08-23 18:49] LABS: CEA 2.3 ng/mL (See Note)
[2020-09-06] MEDS: Normal Saline Flush 10 ML SYR IVP (08:45)
[2020-09-06 08:51] LABS: Absolute Eosinophil Count 0.23 10^3/uL (0.0-0.7); Absolute Lymphocyte Count 3.28 10^3/uL (1.2-3.4); Absolute Monocyte Count 0.77 10^3/uL (0.1-0.8); Basophils % 0.5; Eosinophils % 2.1; HCT 35.5 % (40.0-50.0); HGB 11.8 g/dL (13.5-17.5); Immature Grans % 0.9; Lymphocytes % 29.7; MCH 32.9 pg (27.0-33.0); MCHC 33.2 % (32.0-36.0); MCV 98.9 fL (80-95); MPV 9.2 fL (8.0-11.0); Neutrophils % 59.8; Nucleated RBC 0 %; Platelet Count 140 10^3/uL (130-400); RBC 3.59 10^6/uL (4.36-5.78); RDW 16.4 % (11.8-14.1); RDW-SD 59.1 fL; WBC 11.03 10^3/uL (4.4-10.8)
[2020-09-06 08:52] LABS: Absolute Basophil Count 0.06 10^3/uL (0.0-0.2)
[2020-09-06 09:11] LABS: ALT 60 U/L (16-63); AST 37 U/L (15-37); Albumin 3.1 g/dL (3.4-5.0); Alkaline Phosphatase 138 U/L (46-116); Anion Gap 6.4 mmol/L (3-11); BUN 11 mg/dL (7-18); Bilirubin, Total 0.5 mg/dL (0.2-1.0); CO2 26.6 mmol/L (21.0-32.0); CREATININE 0.89 mg/dL (0.70-1.30); Calcium 8.7 mg/dL (8.5-10.1); Chloride 105 mmol/L (98-107); Glucose 115 mg/dL (74-106); Potassium 3.4 mmol/L (3.5-5.1); Sodium 138 mmol/L (136-145); Total Protein 6.6 g/dL (6.4-8.2)
[2020-09-06 21:46] LABS: CEA 2.8 ng/mL (See Note)
== END 2020-09-14 23:59 | disposition home or self-care (01) ==
LOC: INF 08:30
PROVIDERS: PCP Family Medicine; Visit Provider Internal Medicine Hematology & Oncology
DX: C79.9 Secondary malignant neoplasm of unspecified site (principal); C20 Malignant neoplasm of rectum; Z45.2 Encounter for adjustment and management of vascular access device
CPT/HCPCS: 36591; 80053; 82378; 85025

== ENCOUNTER 2020-10-04 04:55 | Outpatient (RCR) | payer MEDICARE, SELFPAY ==
[2020-09-20] MEDS: Normal Saline Flush 10 ML SYR IVP (10:29)
[2020-09-20 10:39] LABS: Abs Immature Grans 0.09 10^3/uL (0.0-0.06); Absolute Basophil Count 0.05 10^3/uL (0.0-0.2); Absolute Eosinophil Count 0.29 10^3/uL (0.0-0.7); Absolute Lymphocyte Count 3.41 10^3/uL (1.2-3.4); Absolute Monocyte Count 0.91 10^3/uL (0.1-0.8); Absolute Neutrophil Count 5.91 10^3/uL (1.2-6.7); Basophils % 0.5; Eosinophils % 2.7; HCT 37.6 % (40.0-50.0); HGB 12.3 g/dL (13.5-17.5); Immature Grans % 0.8; MCH 33.4 pg (27.0-33.0); MCHC 32.7 % (32.0-36.0); MCV 102.2 fL (80-95); MPV 9.3 fL (8.0-11.0); Monocytes % 8.5; Neutrophils % 55.5; Nucleated RBC 0 %; Platelet Count 145 10^3/uL (130-400); RBC 3.68 10^6/uL (4.36-5.78); RDW 16.1 % (11.8-14.1); RDW-SD 60.9 fL; WBC 10.66 10^3/uL (4.4-10.8)
[2020-09-20 10:51] LABS: ALT 94 U/L (16-63); AST 56 U/L (15-37); Albumin 3.4 g/dL (3.4-5.0); Alkaline Phosphatase 144 U/L (46-116); Anion Gap 7.7 mmol/L (3-11); BUN 14 mg/dL (7-18); Bilirubin, Total 0.5 mg/dL (0.2-1.0); CO2 29.3 mmol/L (21.0-32.0); CREATININE 0.91 mg/dL (0.70-1.30); Calcium 8.9 mg/dL (8.5-10.1); Chloride 104 mmol/L (98-107); Glucose 114 mg/dL (74-106); Potassium 4.1 mmol/L (3.5-5.1); Sodium 141 mmol/L (136-145); Total Protein 7.1 g/dL (6.4-8.2)
[2020-09-24 14:45] LABS: CEA 2.7 ng/ml
[2020-10-04] MEDS: Normal Saline Flush 10 ML SYR IVP (08:35)
[2020-10-04 08:41] LABS: Abs Immature Grans 0.08 10^3/uL (0.0-0.06); Absolute Basophil Count 0.05 10^3/uL (0.0-0.2); Absolute Eosinophil Count 0.22 10^3/uL (0.0-0.7); Absolute Lymphocyte Count 3.35 10^3/uL (1.2-3.4); Absolute Monocyte Count 0.91 10^3/uL (0.1-0.8); Basophils % 0.4; Eosinophils % 1.9; HCT 38.6 % (40.0-50.0); Immature Grans % 0.7; Lymphocytes % 29.1; MCH 33.8 pg (27.0-33.0); MCHC 33.7 % (32.0-36.0); MCV 100.3 fL (80-95); MPV 9.8 fL (8.0-11.0); Monocytes % 7.9; Nucleated RBC 0 %; Platelet Count 145 10^3/uL (130-400); RBC 3.85 10^6/uL (4.36-5.78); RDW 15.8 % (11.8-14.1); RDW-SD 57.6 fL; WBC 11.51 10^3/uL (4.4-10.8)
[2020-10-04 08:45] LABS: Absolute Neutrophil Count 6.91 10^3/uL (1.2-6.7)
[2020-10-04 09:00] LABS: ALT 95 U/L (16-63); AST 53 U/L (15-37); Albumin 3.4 g/dL (3.4-5.0); Alkaline Phosphatase 148 U/L (46-116); BUN 14 mg/dL (7-18); Bilirubin, Total 0.8 mg/dL (0.2-1.0); CREATININE 0.93 mg/dL (0.70-1.30); Calcium 8.9 mg/dL (8.5-10.1); Chloride 104 mmol/L (98-107); Glucose 110 mg/dL (74-106); Potassium 3.8 mmol/L (3.5-5.1); Sodium 139 mmol/L (136-145); Total Protein 7.2 g/dL (6.4-8.2)
[2020-10-07 15:22] LABS: CEA 3.1 ng/ml
== END 2020-10-14 23:59 | disposition home or self-care (01) ==
LOC: INF 04:55
PROVIDERS: PCP Family Medicine; Visit Provider Internal Medicine Hematology & Oncology
DX: C20 Malignant neoplasm of rectum (principal); C79.9 Secondary malignant neoplasm of unspecified site; Z45.2 Encounter for adjustment and management of vascular access device
CPT/HCPCS: 36591; 80053; 82378; 85025

== ENCOUNTER 2020-11-01 04:28 | Outpatient (RCR) | payer MEDICARE, SELFPAY ==
[2020-10-18] MEDS: Normal Saline Flush 10 ML SYR IVP (08:35)
[2020-10-18 09:03] LABS: Abs Immature Grans 0.07 10^3/uL (0.0-0.06); Absolute Basophil Count 0.06 10^3/uL (0.0-0.2); Absolute Eosinophil Count 0.22 10^3/uL (0.0-0.7); Absolute Lymphocyte Count 2.51 10^3/uL (1.2-3.4); Absolute Monocyte Count 0.85 10^3/uL (0.1-0.8); Absolute Neutrophil Count 5.71 10^3/uL (1.2-6.7); Basophils % 0.6; Eosinophils % 2.3; HCT 37.9 % (40.0-50.0); HGB 12.6 g/dL (13.5-17.5); Immature Grans % 0.7; Lymphocytes % 26.6; MCH 33.7 pg (27.0-33.0); MCHC 33.2 % (32.0-36.0); MCV 101.3 fL (80-95); MPV 9.5 fL (8.0-11.0); Neutrophils % 60.8; Nucleated RBC 0 %; Platelet Count 138 10^3/uL (130-400); RBC 3.74 10^6/uL (4.36-5.78); RDW 15.3 % (11.8-14.1); WBC 9.42 10^3/uL (4.4-10.8)
[2020-10-18 09:15] LABS: ALT 75 U/L (16-63); AST 43 U/L (15-37); Albumin 3.4 g/dL (3.4-5.0); Alkaline Phosphatase 129 U/L (46-116); Anion Gap 6.5 mmol/L (3-11); BUN 18 mg/dL (7-18); Bilirubin, Total 0.6 mg/dL (0.2-1.0); CO2 27.5 mmol/L (21.0-32.0); CREATININE 1.08 mg/dL (0.70-1.30); Calcium 8.7 mg/dL (8.5-10.1); Chloride 103 mmol/L (98-107); Glucose 114 mg/dL (74-106); Potassium 3.7 mmol/L (3.5-5.1); Sodium 137 mmol/L (136-145)
[2020-10-18 18:55] LABS: CEA 3.7 ng/mL (See Note)
[2020-11-01] MEDS: Normal Saline Flush 10 ML SYR IVP (08:55)
[2020-11-01 09:07] LABS: Abs Immature Grans 0.08 10^3/uL (0.0-0.06); Absolute Basophil Count 0.07 10^3/uL (0.0-0.2); Absolute Eosinophil Count 0.22 10^3/uL (0.0-0.7); Absolute Lymphocyte Count 2.91 10^3/uL (1.2-3.4); Absolute Monocyte Count 0.72 10^3/uL (0.1-0.8); Absolute Neutrophil Count 5.47 10^3/uL (1.2-6.7); Basophils % 0.7; Eosinophils % 2.3; HGB 12.7 g/dL (13.5-17.5); Immature Grans % 0.8; Lymphocytes % 30.7; MCH 33.1 pg (27.0-33.0); MCHC 32.6 % (32.0-36.0); MCV 101.6 fL (80-95); MPV 9.5 fL (8.0-11.0); Monocytes % 7.6; Neutrophils % 57.9; Nucleated RBC 0 %; Platelet Count 136 10^3/uL (130-400); RBC 3.84 10^6/uL (4.36-5.78); RDW 14.9 % (11.8-14.1); WBC 9.47 10^3/uL (4.4-10.8)
[2020-11-01 09:19] LABS: ALT 79 U/L (16-63); AST 49 U/L (15-37); Albumin 3.4 g/dL (3.4-5.0); Alkaline Phosphatase 127 U/L (46-116); Anion Gap 7.2 mmol/L (3-11); BUN 16 mg/dL (7-18); Bilirubin, Total 0.6 mg/dL (0.2-1.0); CO2 27.8 mmol/L (21.0-32.0); CREATININE 1.07 mg/dL (0.70-1.30); Calcium 9.1 mg/dL (8.5-10.1); Chloride 103 mmol/L (98-107); Glucose 113 mg/dL (74-106); Potassium 4.1 mmol/L (3.5-5.1); Sodium 138 mmol/L (136-145)
[2020-11-01 20:41] LABS: CEA 3.4 ng/mL (See Note)
== END 2020-11-14 23:59 | disposition home or self-care (01) ==
LOC: INF 04:28
PROVIDERS: PCP Family Medicine; Visit Provider Internal Medicine Hematology & Oncology
DX: C20 Malignant neoplasm of rectum (principal); C78.00 Secondary malignant neoplasm of unspecified lung; Z45.2 Encounter for adjustment and management of vascular access device
CPT/HCPCS: 36591; 80053; 82378; 85025

== ENCOUNTER 2020-12-06 04:08 | Outpatient (RCR) | payer MEDICARE, SELFPAY ==
[2020-11-22 09:39] LABS: Abs Immature Grans 0.03 10^3/uL (0.0-0.06); Absolute Basophil Count 0.07 10^3/uL (0.0-0.2); Absolute Lymphocyte Count 3.39 10^3/uL (1.2-3.4); Absolute Monocyte Count 0.69 10^3/uL (0.1-0.8); Absolute Neutrophil Count 3.78 10^3/uL (1.2-6.7); Basophils % 0.9; Eosinophils % 2.5; HCT 38.2 % (40.0-50.0); HGB 12.9 g/dL (13.5-17.5); Immature Grans % 0.4; Lymphocytes % 41.5; MCH 33.5 pg (27.0-33.0); MCHC 33.8 % (32.0-36.0); MCV 99.2 fL (80-95); MPV 9.5 fL (8.0-11.0); Monocytes % 8.5; Neutrophils % 46.2; Nucleated RBC 0 %; Platelet Count 176 10^3/uL (130-400); RBC 3.85 10^6/uL (4.36-5.78); RDW 14.7 % (11.8-14.1); RDW-SD 53.7 fL; WBC 8.16 10^3/uL (4.4-10.8)
[2020-11-22 09:48] LABS: ALT 85 U/L (16-63); AST 50 U/L (15-37); Albumin 3.3 g/dL (3.4-5.0); Alkaline Phosphatase 88 U/L (46-116); Anion Gap 5.8 mmol/L (3-11); BUN 19 mg/dL (7-18); Bilirubin, Total 0.5 mg/dL (0.2-1.0); CO2 27.2 mmol/L (21.0-32.0); CREATININE 1.12 mg/dL (0.70-1.30); Calcium 8.7 mg/dL (8.5-10.1); Chloride 104 mmol/L (98-107); Glucose 111 mg/dL (74-106); Potassium 3.8 mmol/L (3.5-5.1); Sodium 137 mmol/L (136-145)
[2020-11-22] MEDS: Normal Saline Flush 10 ML SYR IVP (10:01)
[2020-11-22 23:14] LABS: CEA 5.6 ng/mL (See Note)
[2020-12-06] MEDS: Normal Saline Flush 10 ML SYR IVP (09:56)
[2020-12-06 10:07] LABS: Abs Immature Grans 0.04 10^3/uL (0.0-0.06); Absolute Basophil Count 0.07 10^3/uL (0.0-0.2); Absolute Eosinophil Count 0.16 10^3/uL (0.0-0.7); Absolute Lymphocyte Count 3.15 10^3/uL (1.2-3.4); Absolute Monocyte Count 0.65 10^3/uL (0.1-0.8); Absolute Neutrophil Count 6.34 10^3/uL (1.2-6.7); Basophils % 0.7; Eosinophils % 1.5; HCT 40.1 % (40.0-50.0); HGB 13.2 g/dL (13.5-17.5); Immature Grans % 0.4; Lymphocytes % 30.3; MCH 33.2 pg (27.0-33.0); MCHC 32.9 % (32.0-36.0); MPV 9.7 fL (8.0-11.0); Monocytes % 6.2; Neutrophils % 60.9; Nucleated RBC 0 %; Platelet Count 131 10^3/uL (130-400); RBC 3.97 10^6/uL (4.36-5.78); RDW 14.9 % (11.8-14.1); WBC 10.41 10^3/uL (4.4-10.8)
[2020-12-06 10:27] LABS: ALT 78 U/L (16-63); AST 54 U/L (15-37); Albumin 3.4 g/dL (3.4-5.0); Alkaline Phosphatase 131 U/L (46-116); Anion Gap 10.3 mmol/L (3-11); BUN 15 mg/dL (7-18); Bilirubin, Total 0.8 mg/dL (0.2-1.0); CO2 27.7 mmol/L (21.0-32.0); CREATININE 1.07 mg/dL (0.70-1.30); Calcium 8.9 mg/dL (8.5-10.1); Chloride 102 mmol/L (98-107); Glucose 114 mg/dL (74-106); Potassium 3.7 mmol/L (3.5-5.1); Sodium 140 mmol/L (136-145); Total Protein 7.1 g/dL (6.4-8.2)
[2020-12-06 19:15] LABS: CEA 5.5 ng/mL (See Note)
== END 2020-12-15 23:59 | disposition home or self-care (01) ==
LOC: INF 04:08
PROVIDERS: PCP Family Medicine; Visit Provider Internal Medicine Hematology & Oncology
DX: C20 Malignant neoplasm of rectum (principal); C78.00 Secondary malignant neoplasm of unspecified lung; Z45.2 Encounter for adjustment and management of vascular access device
CPT/HCPCS: 36591; 80053; 82378; 85025

== ENCOUNTER 2021-01-03 01:42 | Outpatient (RCR) | payer MEDICARE, SELFPAY ==
--- OUTSIDE RECORDS SUMMARY | 2020-12-20 07:22 | XMS_ITS ---
:1935 Author Organization [facility] Address [address] [place] [address] Care Team Providers Name Role Phone Lab or DI, Non [facility] Unavailable Unavailable PROBLEMS Unknown Problems ALLERGIES No Known Allergies ENCOUNTERS [place] [address] Apr IMMUNIZATIONS No Known Immunizations SOCIAL HISTORY Never Assessed REASON FOR REFERRAL FUNCTIONAL STATUS PLAN OF CARE VITAL SIGNS MEDICATIONS Unknown Medications PROCEDURES No Known procedures RESULTS Name Result Date Reference Range CT Abd/Pelvis w/ ([id number]) 2020-09-03 See Below For Report CT Chest w/ ([id number]) 2020-09-03 See Below For Report CT Abd/Pelvis w/ ([id number]) 2020-06-24 See Below For Report CT Chest w/ ([id number]) 2020-06-24 See Below For Report CT Abd/Pelvis w/ ([id number]) 2020-04-25 See Below For Report CT Chest w/ ([id number]) 2020-04-25 See Below For Report CBC WITH MANUAL DIFF 2020-04-22 WBC 10.6 4.0-12.0 RBC 3.7 4.5-6.0 HGB 10.9 13.5-18.0 HCT 34.1 42.0-52.0 MCV 93 78-100 MCH 29.6 27.0-32.0 MCHC 32.0 32.0-36.0 RDW 15.0 11.0-14.0 PLT 234 140-440 MPV 9.1 7.4-11.0 ANC# 2.5 1.4-7.9 IG# 0.02 0.00-0.10 LY# 7.30 1.50-4.00 MO# 0.59 0.20-0.80 EO# 0.13 0.00-0.70 BA# 0.03 0.00-0.20 NE% 23.6 IG% 0.2 0.0-1.0 LY% 69.1 MO% 5.6 EO% 1.2 BA% 0.3 SEG 26 40-79 LYMPH 12 21-45 MONO 10 6-12 EOSINO 2.0 0.0-5.0 BASO 0 0-3 BAND 2 3-5 ATYPLYMPH 48 0-3 BLAST 0.0 <=0.0 META 0.0 <=0.0 MYELO 0.0 <=0.0 NRBC 0.0 <=0.0 RBCMORPH ABNORMAL CEA 2020-04-22 CEA 5.00 0.10-3.00 LTL TEST PERFORMED AT: [facility] [address] [place] [address] CLIA # [id number] COMPMET 2020-04-22 GLUC 90 74-106 BUN 19 7-25 CREATS 0.77 0.70-1.30 EGFR >60 >=60 NA 140 136-144 K+ 3.4 3.5-5.1 CL 105 98-110 CO2 26 22-32 CA 8.5 8.6-10.3 TP 6.8 6.0-8.3 ALB 3.5 3.4-5.0 TBIL 0.3 0.3-1.2 DBIL 0.1 0.0-0.2 ALKP 54 34-104 AST 26 13-39 ALT 22 7-52 CT Abd/Pelvis w/ ([id number]) 2020-03-11 See Below For Report CT Abd/Pelvis w/ ([id number]) 2019-12-21 See Below For Report CT Chest w/ ([id number]) 2019-12-21 See Below For Report REASON FOR VISIT blood work Insurance Providers [facility] Health Member Patient Patient Patient Patient Patient Subscriber Subscriber Subscriber Group Insurance Plan Plan Plan Plan ID Relationship Address Phone Name Date of ID Name Date of No Type Insurance Insurance Insurance Coverage to Subscriber Address Phone Name Dates SELF PAY [address] STREET SELF PAY self BRITTANI [id number] [place] [id number] MEDICARE MEDICARE [address] MEDICARE self BRITTANI [id number] [facility] [id number]
[2020-12-20 09:11] LABS: Abs Immature Grans 0.03 10^3/uL (0.0-0.06); Absolute Basophil Count 0.08 10^3/uL (0.0-0.2); Absolute Eosinophil Count 0.23 10^3/uL (0.0-0.7); Absolute Lymphocyte Count 2.91 10^3/uL (1.2-3.4); Absolute Monocyte Count 0.76 10^3/uL (0.1-0.8); Absolute Neutrophil Count 4.89 10^3/uL (1.2-6.7); Basophils % 0.9; Eosinophils % 2.6; HCT 39.3 % (40.0-50.0); HGB 13.1 g/dL (13.5-17.5); Immature Grans % 0.3; Lymphocytes % 32.7; MCH 33.9 pg (27.0-33.0); MCHC 33.3 % (32.0-36.0); MCV 101.6 fL (80-95); MPV 9.7 fL (8.0-11.0); Monocytes % 8.5; Nucleated RBC 0 %; Platelet Count 140 10^3/uL (130-400); RBC 3.87 10^6/uL (4.36-5.78); RDW 15.2 % (11.8-14.1); RDW-SD 56.6 fL
[2020-12-20 09:24] LABS: ALT 79 U/L (16-63); AST 54 U/L (15-37); Albumin 3.4 g/dL (3.4-5.0); Alkaline Phosphatase 135 U/L (46-116); Anion Gap 11.1 mmol/L (3-11); BUN 17 mg/dL (7-18); Bilirubin, Total 0.6 mg/dL (0.2-1.0); CO2 24.9 mmol/L (21.0-32.0); Calcium 9.1 mg/dL (8.5-10.1); Chloride 103 mmol/L (98-107); Glucose 115 mg/dL (74-106); Potassium 4.2 mmol/L (3.5-5.1); Sodium 139 mmol/L (136-145); Total Protein 7.2 g/dL (6.4-8.2)
[2020-12-20] MEDS: Normal Saline Flush 10 ML SYR IVP (09:33)
[2020-12-20 18:56] LABS: CEA 5.1 ng/mL (See Note)
[2021-01-03] MEDS: Normal Saline Flush 10 ML SYR IVP (08:24)
[2021-01-03 08:44] LABS: Abs Immature Grans 0.07 10^3/uL (0.0-0.06); Absolute Basophil Count 0.08 10^3/uL (0.0-0.2); Absolute Eosinophil Count 0.21 10^3/uL (0.0-0.7); Absolute Lymphocyte Count 2.94 10^3/uL (1.2-3.4); Absolute Monocyte Count 0.73 10^3/uL (0.1-0.8); Absolute Neutrophil Count 5.93 10^3/uL (1.2-6.7); Basophils % 0.8; Eosinophils % 2.1; HCT 39.3 % (40.0-50.0); HGB 13.1 g/dL (13.5-17.5); Immature Grans % 0.7; Lymphocytes % 29.5; MCH 33.6 pg (27.0-33.0); MCHC 33.3 % (32.0-36.0); MCV 100.8 fL (80-95); MPV 9.5 fL (8.0-11.0); Monocytes % 7.3; Neutrophils % 59.6; Nucleated RBC 0 %; Platelet Count 138 10^3/uL (130-400); RDW-SD 55.6 fL; WBC 9.96 10^3/uL (4.4-10.8)
[2021-01-03 08:59] LABS: ALT 78 U/L (16-63); AST 50 U/L (15-37); Albumin 3.1 g/dL (3.4-5.0); Alkaline Phosphatase 142 U/L (46-116); Anion Gap 9.4 mmol/L (3-11); BUN 15 mg/dL (7-18); Bilirubin, Total 0.7 mg/dL (0.2-1.0); CO2 27.6 mmol/L (21.0-32.0); CREATININE 1.1 mg/dL (0.70-1.30); Calcium 8.8 mg/dL (8.5-10.1); Chloride 104 mmol/L (98-107); Glucose 127 mg/dL (74-106); Potassium 3.5 mmol/L (3.5-5.1); Sodium 141 mmol/L (136-145); Total Protein 6.9 g/dL (6.4-8.2)
[2021-01-03 17:17] LABS: CEA 6.3 ng/mL (See Note)
== END 2021-01-12 23:59 | disposition home or self-care (01) ==
LOC: INF 01:42
PROVIDERS: PCP Family Medicine; Visit Provider Internal Medicine Hematology & Oncology
DX: C20 Malignant neoplasm of rectum (principal); C78.00 Secondary malignant neoplasm of unspecified lung; Z45.2 Encounter for adjustment and management of vascular access device
CPT/HCPCS: 36591; 80053; 82378; 85025

== ENCOUNTER 2021-01-31 05:32 | Outpatient (RCR) | payer MEDICARE, SELFPAY ==
[2021-01-17] MEDS: Normal Saline Flush 10 ML SYR IVP (08:41)
[2021-01-17 08:47] LABS: Abs Immature Grans 0.07 10^3/uL (0.0-0.06); Absolute Basophil Count 0.05 10^3/uL (0.0-0.2); Absolute Eosinophil Count 0.24 10^3/uL (0.0-0.7); Absolute Monocyte Count 0.94 10^3/uL (0.1-0.8); Basophils % 0.5; Eosinophils % 2.3; HCT 39.5 % (40.0-50.0); HGB 13.3 g/dL (13.5-17.5); Immature Grans % 0.7; Lymphocytes % 28.3; MCH 34.3 pg (27.0-33.0); MCHC 33.7 % (32.0-36.0); MCV 101.8 fL (80-95); MPV 9.4 fL (8.0-11.0); Monocytes % 8.9; Neutrophils % 59.3; Nucleated RBC 0 %; Platelet Count 127 10^3/uL (130-400); RBC 3.88 10^6/uL (4.36-5.78); RDW 15.1 % (11.8-14.1); RDW-SD 56.2 fL
[2021-01-17 09:12] LABS: ALT 92 U/L (16-63); AST 57 U/L (15-37); Albumin 3.3 g/dL (3.4-5.0); Alkaline Phosphatase 138 U/L (46-116); Anion Gap 9.1 mmol/L (3-11); BUN 16 mg/dL (7-18); Bilirubin, Total 0.6 mg/dL (0.2-1.0); CO2 27.9 mmol/L (21.0-32.0); CREATININE 1.1 mg/dL (0.70-1.30); Chloride 104 mmol/L (98-107); Glucose 117 mg/dL (74-106); Potassium 3.6 mmol/L (3.5-5.1); Sodium 141 mmol/L (136-145)
[2021-01-17 17:33] LABS: CEA 6.7 ng/mL (See Note)
[2021-01-31 09:40] LABS: Abs Immature Grans 0.05 10^3/uL (0.0-0.06); Absolute Basophil Count 0.07 10^3/uL (0.0-0.2); Absolute Eosinophil Count 0.21 10^3/uL (0.0-0.7); Absolute Lymphocyte Count 2.38 10^3/uL (1.2-3.4); Absolute Monocyte Count 0.83 10^3/uL (0.1-0.8); Absolute Neutrophil Count 4.75 10^3/uL (1.2-6.7); Basophils % 0.8; Eosinophils % 2.5; HCT 38.3 % (40.0-50.0); Immature Grans % 0.6; Lymphocytes % 28.7; MCH 34.6 pg (27.0-33.0); MCHC 33.9 % (32.0-36.0); MCV 101.9 fL (80-95); MPV 9.3 fL (8.0-11.0); Neutrophils % 57.4; Nucleated RBC 0 %; Platelet Count 129 10^3/uL (130-400); RBC 3.76 10^6/uL (4.36-5.78); RDW 14.9 % (11.8-14.1); RDW-SD 55.5 fL; WBC 8.29 10^3/uL (4.4-10.8)
[2021-01-31] MEDS: Normal Saline Flush 10 ML SYR IVP (09:47)
[2021-01-31 09:50] LABS: ALT 88 U/L (16-63); AST 49 U/L (15-37); Albumin 3.2 g/dL (3.4-5.0); Alkaline Phosphatase 130 U/L (46-116); Anion Gap 8.8 mmol/L (3-11); BUN 15 mg/dL (7-18); Bilirubin, Total 0.7 mg/dL (0.2-1.0); CO2 30.2 mmol/L (21.0-32.0); Calcium 8.9 mg/dL (8.5-10.1); Chloride 104 mmol/L (98-107); Glucose 128 mg/dL (74-106); Potassium 3.7 mmol/L (3.5-5.1); Sodium 143 mmol/L (136-145); Total Protein 6.9 g/dL (6.4-8.2)
[2021-01-31 17:32] LABS: CEA 7.7 ng/mL (See Note)
== END 2021-02-12 23:59 | disposition home or self-care (01) ==
LOC: INF 05:32
PROVIDERS: PCP Family Medicine; Visit Provider Internal Medicine Hematology & Oncology
DX: C20 Malignant neoplasm of rectum (principal); C78.00 Secondary malignant neoplasm of unspecified lung; Z45.2 Encounter for adjustment and management of vascular access device
CPT/HCPCS: 36591; 80053; 82378; 85025

== ENCOUNTER 2021-03-14 04:24 | Outpatient (RCR) | payer MEDICARE, SELFPAY ==
[2021-02-14] MEDS: Normal Saline Flush 10 ML SYR IVP (08:45)
[2021-02-14 08:52] LABS: Abs Immature Grans 0.12 10^3/uL (0.0-0.06); Absolute Basophil Count 0.09 10^3/uL (0.0-0.2); Absolute Lymphocyte Count 2.84 10^3/uL (1.2-3.4); Absolute Monocyte Count 0.87 10^3/uL (0.1-0.8); Absolute Neutrophil Count 7.51 10^3/uL (1.2-6.7); Basophils % 0.8; Eosinophils % 2.6; HGB 13.4 g/dL (13.5-17.5); Lymphocytes % 24.2; MCH 34.7 pg (27.0-33.0); MCHC 34.4 % (32.0-36.0); Monocytes % 7.4; Nucleated RBC 0 %; Platelet Count 156 10^3/uL (130-400); RBC 3.86 10^6/uL (4.36-5.78); RDW 14.7 % (11.8-14.1); RDW-SD 54.3 fL; WBC 11.73 10^3/uL (4.4-10.8)
[2021-02-14 09:06] LABS: ALT 89 U/L (16-63); AST 50 U/L (15-37); Albumin 3.2 g/dL (3.4-5.0); Alkaline Phosphatase 144 U/L (46-116); Anion Gap 8.9 mmol/L (3-11); BUN 21 mg/dL (7-18); Bilirubin, Total 0.5 mg/dL (0.2-1.0); CO2 29.1 mmol/L (21.0-32.0); CREATININE 1.1 mg/dL (0.70-1.30); Chloride 104 mmol/L (98-107); Glucose 125 mg/dL (74-106); Potassium 3.3 mmol/L (3.5-5.1); Sodium 142 mmol/L (136-145); Total Protein 7.1 g/dL (6.4-8.2)
[2021-02-14 17:36] LABS: CEA 7.8 ng/mL (See Note)
[2021-02-28 10:18] LABS: Abs Immature Grans 0.02 10^3/uL (0.0-0.06); Absolute Basophil Count 0.05 10^3/uL (0.0-0.2); Absolute Eosinophil Count 0.26 10^3/uL (0.0-0.7); Absolute Lymphocyte Count 2.76 10^3/uL (1.2-3.4); Basophils % 0.8; Eosinophils % 4.3; Immature Grans % 0.3; Lymphocytes % 45.3; MCHC 34.3 % (32.0-36.0); MCV 99.2 fL (80-95); MPV 9.6 fL (8.0-11.0); Monocytes % 13.1; Neutrophils % 36.2; Nucleated RBC 0 %; Platelet Count 156 10^3/uL (130-400); RBC 3.53 10^6/uL (4.36-5.78); RDW 13.5 % (11.8-14.1); RDW-SD 49.1 fL; WBC 6.09 10^3/uL (4.4-10.8)
[2021-02-28 10:29] LABS: ALT 73 U/L (16-63); AST 55 U/L (15-37); Alkaline Phosphatase 82 U/L (46-116); Anion Gap 9.4 mmol/L (3-11); BUN 16 mg/dL (7-18); Bilirubin, Total 0.5 mg/dL (0.2-1.0); CO2 28.6 mmol/L (21.0-32.0); Calcium 8.6 mg/dL (8.5-10.1); Chloride 103 mmol/L (98-107); Glucose 109 mg/dL (74-106); Potassium 3.3 mmol/L (3.5-5.1); Sodium 141 mmol/L (136-145); Total Protein 6.9 g/dL (6.4-8.2)
[2021-02-28] MEDS: Normal Saline Flush 10 ML SYR IVP (10:39)
[2021-02-28 17:23] LABS: CEA 10.6 ng/mL (See Note)
[2021-03-14] MEDS: Normal Saline Flush 10 ML SYR IVP (08:12)
[2021-03-14 08:16] LABS: Abs Immature Grans 0.01 10^3/uL (0.0-0.06); Absolute Basophil Count 0.05 10^3/uL (0.0-0.2); Absolute Eosinophil Count 0.16 10^3/uL (0.0-0.7); Absolute Lymphocyte Count 2.17 10^3/uL (1.2-3.4); Absolute Monocyte Count 0.53 10^3/uL (0.1-0.8); Absolute Neutrophil Count 1.98 10^3/uL (1.2-6.7); Eosinophils % 3.3; HGB 12.4 g/dL (13.5-17.5); Immature Grans % 0.2; Lymphocytes % 44.3; MCHC 33.5 % (32.0-36.0); MCV 101.4 fL (80-95); Monocytes % 10.8; Neutrophils % 40.4; Nucleated RBC 0 %; Platelet Count 157 10^3/uL (130-400); RBC 3.65 10^6/uL (4.36-5.78); RDW 13.4 % (11.8-14.1); RDW-SD 50.1 fL
[2021-03-14 08:29] LABS: ALT 89 U/L (16-63); AST 52 U/L (15-37); Albumin 3.1 g/dL (3.4-5.0); Alkaline Phosphatase 84 U/L (46-116); Anion Gap 11.2 mmol/L (3-11); BUN 11 mg/dL (7-18); Bilirubin, Total 0.5 mg/dL (0.2-1.0); CO2 26.8 mmol/L (21.0-32.0); Calcium 8.6 mg/dL (8.5-10.1); Chloride 105 mmol/L (98-107); Glucose 109 mg/dL (74-106); Potassium 3.8 mmol/L (3.5-5.1); Sodium 143 mmol/L (136-145); Total Protein 6.8 g/dL (6.4-8.2)
[2021-03-14 17:07] LABS: CEA 13.2 ng/mL (See Note)
== END 2021-03-14 23:59 | disposition home or self-care (01) ==
LOC: INF 04:24
PROVIDERS: PCP Family Medicine; Visit Provider Internal Medicine Hematology & Oncology
DX: C20 Malignant neoplasm of rectum (principal); C79.9 Secondary malignant neoplasm of unspecified site; Z45.2 Encounter for adjustment and management of vascular access device
CPT/HCPCS: 36415; 36591; 80053; 82378; 85025

== ENCOUNTER 2021-04-11 04:01 | Outpatient (RCR) | payer MEDICARE, SELFPAY ==
[2021-03-28] MEDS: Normal Saline Flush 10 ML SYR IVP (10:07)
[2021-03-28 10:16] LABS: Abs Immature Grans 0.01 10^3/uL (0.0-0.06); Absolute Basophil Count 0.03 10^3/uL (0.0-0.2); Absolute Eosinophil Count 0.09 10^3/uL (0.0-0.7); Absolute Lymphocyte Count 2.72 10^3/uL (1.2-3.4); Absolute Monocyte Count 0.64 10^3/uL (0.1-0.8); Absolute Neutrophil Count 2.62 10^3/uL (1.2-6.7); Basophils % 0.5; Eosinophils % 1.5; HCT 36.9 % (40.0-50.0); HGB 12.2 g/dL (13.5-17.5); Immature Grans % 0.2; Lymphocytes % 44.5; MCH 32.9 pg (27.0-33.0); MCHC 33.1 % (32.0-36.0); MCV 99.5 fL (80-95); Monocytes % 10.5; Neutrophils % 42.8; Nucleated RBC 0 %; Platelet Count 160 10^3/uL (130-400); RBC 3.71 10^6/uL (4.36-5.78); RDW 13.4 % (11.8-14.1); WBC 6.11 10^3/uL (4.4-10.8)
[2021-03-28 10:23] LABS: ALT 84 U/L (16-63); AST 49 U/L (15-37); Albumin 3.1 g/dL (3.4-5.0); Alkaline Phosphatase 73 U/L (46-116); Anion Gap 8.5 mmol/L (3-11); BUN 13 mg/dL (7-18); Bilirubin, Total 0.6 mg/dL (0.2-1.0); CO2 28.5 mmol/L (21.0-32.0); Calcium 8.7 mg/dL (8.5-10.1); Chloride 104 mmol/L (98-107); Glucose 124 mg/dL (74-106); Potassium 3.4 mmol/L (3.5-5.1); Sodium 141 mmol/L (136-145); Total Protein 6.9 g/dL (6.4-8.2)
[2021-03-28 17:01] LABS: CEA 14.9 ng/mL (See Note)
[2021-04-11] MEDS: Normal Saline Flush 10 ML SYR IVP (08:26)
[2021-04-11 08:51] LABS: ALT 75 U/L (16-63); AST 42 U/L (15-37); Albumin 3.2 g/dL (3.4-5.0); Alkaline Phosphatase 71 U/L (46-116); Anion Gap 9.7 mmol/L (3-11); BUN 21 mg/dL (7-18); Bilirubin, Total 0.7 mg/dL (0.2-1.0); CO2 27.3 mmol/L (21.0-32.0); CREATININE 1.1 mg/dL (0.70-1.30); Calcium 8.9 mg/dL (8.5-10.1); Chloride 104 mmol/L (98-107); Glucose 137 mg/dL (74-106); Potassium 3.6 mmol/L (3.5-5.1); Sodium 141 mmol/L (136-145); Total Protein 7.2 g/dL (6.4-8.2)
[2021-04-11 08:58] LABS: Abs Immature Grans 0.02 10^3/uL (0.0-0.06); Absolute Basophil Count 0.03 10^3/uL (0.0-0.2); Absolute Eosinophil Count 0.12 10^3/uL (0.0-0.7); Absolute Lymphocyte Count 2.18 10^3/uL (1.2-3.4); Absolute Monocyte Count 0.77 10^3/uL (0.1-0.8); Absolute Neutrophil Count 3.05 10^3/uL (1.2-6.7); Basophils % 0.5; Eosinophils % 1.9; HCT 36.8 % (40.0-50.0); HGB 12.4 g/dL (13.5-17.5); Immature Grans % 0.3; Lymphocytes % 35.3; MCH 32.7 pg (27.0-33.0); MCHC 33.7 % (32.0-36.0); MCV 97.1 fL (80-95); MPV 9.3 fL (8.0-11.0); Monocytes % 12.5; Neutrophils % 49.5; Nucleated RBC 0 %; Platelet Count 171 10^3/uL (130-400); RBC 3.79 10^6/uL (4.36-5.78); RDW 13.8 % (11.8-14.1); RDW-SD 49.2 fL; WBC 6.17 10^3/uL (4.4-10.8)
[2021-04-11 17:51] LABS: CEA 22.7 ng/mL (See Note)
== END 2021-04-14 23:59 | disposition home or self-care (01) ==
LOC: INF 04:01
PROVIDERS: PCP Family Medicine; Visit Provider Internal Medicine Hematology & Oncology
DX: C20 Malignant neoplasm of rectum (principal); Z45.2 Encounter for adjustment and management of vascular access device; C78.00 Secondary malignant neoplasm of unspecified lung
CPT/HCPCS: 36591; 80053; 82378; 85025

== ENCOUNTER 2021-05-09 05:29 | Outpatient (RCR) | payer MEDICARE, SELFPAY ==
[2021-04-25 08:08] LABS: Abs Immature Grans 0.01 10^3/uL (0.0-0.06); Absolute Basophil Count 0.02 10^3/uL (0.0-0.2); Absolute Eosinophil Count 0.12 10^3/uL (0.0-0.7); Absolute Lymphocyte Count 2.52 10^3/uL (1.2-3.4); Absolute Monocyte Count 0.66 10^3/uL (0.1-0.8); Absolute Neutrophil Count 1.64 10^3/uL (1.2-6.7); Basophils % 0.4; Eosinophils % 2.4; Immature Grans % 0.2; Lymphocytes % 50.7; MCH 32.7 pg (27.0-33.0); MCHC 33.3 % (32.0-36.0); MCV 98.1 fL (80-95); Monocytes % 13.3; Nucleated RBC 0 %; Platelet Count 149 10^3/uL (130-400); RBC 3.67 10^6/uL (4.36-5.78); RDW 13.7 % (11.8-14.1); RDW-SD 49.2 fL; WBC 4.97 10^3/uL (4.4-10.8)
[2021-04-25] MEDS: Normal Saline Flush 10 ML SYR IVP (08:43)
[2021-04-25 08:44] LABS: ALT 86 U/L (16-63); AST 48 U/L (15-37); Albumin 3.1 g/dL (3.4-5.0); Alkaline Phosphatase 74 U/L (46-116); Anion Gap 10.2 mmol/L (3-11); BUN 18 mg/dL (7-18); Bilirubin, Total 0.6 mg/dL (0.2-1.0); CO2 26.8 mmol/L (21.0-32.0); CREATININE 1.1 mg/dL (0.70-1.30); Calcium 8.7 mg/dL (8.5-10.1); Chloride 105 mmol/L (98-107); Glucose 134 mg/dL (74-106); Potassium 3.6 mmol/L (3.5-5.1); Sodium 142 mmol/L (136-145); Total Protein 6.7 g/dL (6.4-8.2)
[2021-04-25 18:33] LABS: CEA 24.1 ng/mL (See Note)
[2021-05-09] MEDS: Normal Saline Flush 10 ML SYR IVP (10:16)
[2021-05-09 10:17] LABS: Abs Immature Grans 0.01 10^3/uL (0.0-0.06); Absolute Basophil Count 0.01 10^3/uL (0.0-0.2); Absolute Eosinophil Count 0.11 10^3/uL (0.0-0.7); Absolute Lymphocyte Count 2.49 10^3/uL (1.2-3.4); Basophils % 0.2; Eosinophils % 2.1; HCT 34.4 % (40.0-50.0); HGB 11.6 g/dL (13.5-17.5); Immature Grans % 0.2; Lymphocytes % 47.7; MCH 32.7 pg (27.0-33.0); MCHC 33.7 % (32.0-36.0); MCV 96.9 fL (80-95); MPV 9.6 fL (8.0-11.0); Monocytes % 11.5; Neutrophils % 38.3; Nucleated RBC 0 %; Platelet Count 156 10^3/uL (130-400); RBC 3.55 10^6/uL (4.36-5.78); RDW 14.4 % (11.8-14.1); RDW-SD 50.5 fL; WBC 5.22 10^3/uL (4.4-10.8)
[2021-05-09 10:30] LABS: ALT 105 U/L (16-63); AST 67 U/L (15-37); Alkaline Phosphatase 72 U/L (46-116); Anion Gap 10.5 mmol/L (3-11); BUN 12 mg/dL (7-18); Bilirubin, Total 0.5 mg/dL (0.2-1.0); CO2 26.5 mmol/L (21.0-32.0); Calcium 8.9 mg/dL (8.5-10.1); Chloride 106 mmol/L (98-107); Glucose 112 mg/dL (74-106); Potassium 3.4 mmol/L (3.5-5.1); Sodium 143 mmol/L (136-145); Total Protein 6.7 g/dL (6.4-8.2)
[2021-05-09 17:50] LABS: CEA 32.8 ng/mL (See Note)
== END 2021-05-14 23:59 | disposition home or self-care (01) ==
LOC: INF 05:29
PROVIDERS: PCP Family Medicine; Visit Provider Internal Medicine Hematology & Oncology
DX: C20 Malignant neoplasm of rectum (principal); C78.00 Secondary malignant neoplasm of unspecified lung; Z45.2 Encounter for adjustment and management of vascular access device
CPT/HCPCS: 36591; 80053; 82378; 85025

== ENCOUNTER 2021-06-06 05:43 | Outpatient (RCR) | payer MEDICARE, SELFPAY ==
[2021-05-23] MEDS: Normal Saline Flush 10 ML SYR IVP (11:55)
[2021-05-23 12:08] LABS: Abs Immature Grans 0.03 10^3/uL (0.0-0.06); Absolute Basophil Count 0.04 10^3/uL (0.0-0.2); Absolute Lymphocyte Count 2.78 10^3/uL (1.2-3.4); Absolute Monocyte Count 0.75 10^3/uL (0.1-0.8); Basophils % 0.6; Eosinophils % 2.8; HCT 35.2 % (40.0-50.0); Immature Grans % 0.4; Lymphocytes % 39.2; MCH 33.4 pg (27.0-33.0); MCHC 34.1 % (32.0-36.0); MCV 98.1 fL (80-95); MPV 9.2 fL (8.0-11.0); Monocytes % 10.6; Neutrophils % 46.4; Nucleated RBC 0 %; Platelet Count 152 10^3/uL (130-400); RBC 3.59 10^6/uL (4.36-5.78); RDW 14.8 % (11.8-14.1)
[2021-05-23 12:20] LABS: ALT 114 U/L (16-63); AST 69 U/L (15-37); Alkaline Phosphatase 72 U/L (46-116); BUN 16 mg/dL (7-18); Bilirubin, Total 0.6 mg/dL (0.2-1.0); Calcium 8.7 mg/dL (8.5-10.1); Chloride 105 mmol/L (98-107); Glucose 106 mg/dL (74-106); Potassium 3.8 mmol/L (3.5-5.1); Sodium 143 mmol/L (136-145); Total Protein 6.7 g/dL (6.4-8.2)
[2021-05-23 15:03] LABS: Magnesium 2.2 mg/dL (1.8-2.4)
[2021-05-23 21:38] LABS: CEA 32.9 ng/mL (See Note)
[2021-06-06] MEDS: Normal Saline Flush 10 ML SYR IVP (12:39)
[2021-06-06 12:47] LABS: Abs Immature Grans 0.03 10^3/uL (0.0-0.06); Absolute Basophil Count 0.03 10^3/uL (0.0-0.2); Absolute Eosinophil Count 0.14 10^3/uL (0.0-0.7); Absolute Lymphocyte Count 3.35 10^3/uL (1.2-3.4); Absolute Monocyte Count 0.99 10^3/uL (0.1-0.8); Absolute Neutrophil Count 4.89 10^3/uL (1.2-6.7); Basophils % 0.3; Eosinophils % 1.5; HCT 35.6 % (40.0-50.0); HGB 12.1 g/dL (13.5-17.5); Immature Grans % 0.3; Lymphocytes % 35.5; MCH 32.7 pg (27.0-33.0); MCV 96.2 fL (80-95); MPV 9.5 fL (8.0-11.0); Monocytes % 10.5; Neutrophils % 51.9; Nucleated RBC 0 %; Platelet Count 201 10^3/uL (130-400); RDW 14.7 % (11.8-14.1); RDW-SD 51.9 fL; WBC 9.43 10^3/uL (4.4-10.8)
[2021-06-06 13:02] LABS: ALT 90 U/L (16-63); AST 61 U/L (15-37); Albumin 3.1 g/dL (3.4-5.0); Alkaline Phosphatase 84 U/L (46-116); Anion Gap 8.3 mmol/L (3-11); BUN 15 mg/dL (7-18); Bilirubin, Total 0.5 mg/dL (0.2-1.0); CO2 26.7 mmol/L (21.0-32.0); Calcium 8.7 mg/dL (8.5-10.1); Chloride 102 mmol/L (98-107); Glucose 113 mg/dL (74-106); Magnesium 1.9 mg/dL (1.8-2.4); Potassium 3.4 mmol/L (3.5-5.1); Sodium 137 mmol/L (136-145); Total Protein 7.3 g/dL (6.4-8.2)
[2021-06-09 10:09] LABS: CEA 10.7 ng/mL (See Note)
== END 2021-06-14 23:59 | disposition home or self-care (01) ==
LOC: INF 05:43
PROVIDERS: PCP Family Medicine; Visit Provider Internal Medicine Hematology & Oncology
DX: C20 Malignant neoplasm of rectum (principal); C78.00 Secondary malignant neoplasm of unspecified lung; Z45.2 Encounter for adjustment and management of vascular access device
CPT/HCPCS: 36591; 80053; 82378; 83735; 85025

== ENCOUNTER 2021-07-04 04:28 | Outpatient (RCR) | payer MEDICARE, SELFPAY ==
[2021-06-20] MEDS: Normal Saline Flush 10 ML SYR IVP (10:13)
[2021-06-20 10:23] LABS: Abs Immature Grans 0.01 10^3/uL (0.0-0.06); Absolute Basophil Count 0.03 10^3/uL (0.0-0.2); Absolute Eosinophil Count 0.19 10^3/uL (0.0-0.7); Absolute Lymphocyte Count 3.03 10^3/uL (1.2-3.4); Absolute Monocyte Count 0.66 10^3/uL (0.1-0.8); Absolute Neutrophil Count 2.78 10^3/uL (1.2-6.7); Basophils % 0.4; Eosinophils % 2.8; HCT 34.8 % (40.0-50.0); HGB 11.6 g/dL (13.5-17.5); Immature Grans % 0.1; Lymphocytes % 45.2; MCH 32.5 pg (27.0-33.0); MCHC 33.3 % (32.0-36.0); MCV 97.5 fL (80-95); MPV 9.8 fL (8.0-11.0); Monocytes % 9.9; Neutrophils % 41.6; Nucleated RBC 0 %; Platelet Count 183 10^3/uL (130-400); RBC 3.57 10^6/uL (4.36-5.78); RDW 14.9 % (11.8-14.1); RDW-SD 54.1 fL
[2021-06-20 10:34] LABS: ALT 89 U/L (16-63); AST 62 U/L (15-37); Albumin 2.9 g/dL (3.4-5.0); Alkaline Phosphatase 69 U/L (46-116); Anion Gap 7.5 mmol/L (3-11); BUN 18 mg/dL (7-18); Bilirubin, Total 0.6 mg/dL (0.2-1.0); CO2 28.5 mmol/L (21.0-32.0); CREATININE 0.8 mg/dL (0.70-1.30); Calcium 8.6 mg/dL (8.5-10.1); Chloride 106 mmol/L (98-107); Glucose 107 mg/dL (74-106); Magnesium 1.8 mg/dL (1.8-2.4); Potassium 3.6 mmol/L (3.5-5.1); Sodium 142 mmol/L (136-145); Total Protein 6.8 g/dL (6.4-8.2)
[2021-07-04] MEDS: Normal Saline Flush 10 ML SYR IVP (10:06)
[2021-07-04 10:08] LABS: Abs Immature Grans 0.02 10^3/uL (0.0-0.06); Absolute Basophil Count 0.05 10^3/uL (0.0-0.2); Absolute Eosinophil Count 0.32 10^3/uL (0.0-0.7); Absolute Lymphocyte Count 3.33 10^3/uL (1.2-3.4); Absolute Monocyte Count 0.71 10^3/uL (0.1-0.8); Absolute Neutrophil Count 3.15 10^3/uL (1.2-6.7); Basophils % 0.7; Eosinophils % 4.2; HCT 35.9 % (40.0-50.0); HGB 12.1 g/dL (13.5-17.5); Immature Grans % 0.3; Lymphocytes % 43.9; MCH 32.9 pg (27.0-33.0); MCHC 33.7 % (32.0-36.0); MCV 97.6 fL (80-95); MPV 9.7 fL (8.0-11.0); Monocytes % 9.4; Neutrophils % 41.5; Nucleated RBC 0 %; Platelet Count 174 10^3/uL (130-400); RBC 3.68 10^6/uL (4.36-5.78); RDW 14.4 % (11.8-14.1); RDW-SD 51.7 fL; WBC 7.58 10^3/uL (4.4-10.8)
[2021-07-04 10:36] LABS: ALT 103 U/L (16-63); AST 74 U/L (15-37); Alkaline Phosphatase 80 U/L (46-116); Anion Gap 7.5 mmol/L (3-11); BUN 17 mg/dL (7-18); Bilirubin, Total 0.6 mg/dL (0.2-1.0); CO2 29.5 mmol/L (21.0-32.0); CREATININE 0.9 mg/dL (0.70-1.30); Calcium 8.7 mg/dL (8.5-10.1); Chloride 105 mmol/L (98-107); Glucose 117 mg/dL (74-106); Potassium 3.8 mmol/L (3.5-5.1); Sodium 142 mmol/L (136-145)
[2021-07-04 12:12] LABS: Magnesium 1.9 mg/dL (1.8-2.4)
[2021-07-04 16:45] LABS: CEA 3.9 ng/mL (See Note)
== END 2021-07-15 23:59 | disposition home or self-care (01) ==
LOC: INF 04:28
PROVIDERS: PCP Family Medicine; Visit Provider Internal Medicine Hematology & Oncology
DX: C20 Malignant neoplasm of rectum (principal); C78.00 Secondary malignant neoplasm of unspecified lung; C79.89 Secondary malignant neoplasm of other specified sites; Z45.2 Encounter for adjustment and management of vascular access device
CPT/HCPCS: 36591; 80053; 82378; 83735; 85025

== ENCOUNTER 2021-08-01 04:32 | Outpatient (RCR) | payer MEDICARE, SELFPAY ==
[2021-07-18] MEDS: Normal Saline Flush 10 ML SYR IVP (08:57)
[2021-07-18 09:03] LABS: Abs Immature Grans 0.02 10^3/uL (0.0-0.06); Absolute Basophil Count 0.05 10^3/uL (0.0-0.2); Absolute Eosinophil Count 0.27 10^3/uL (0.0-0.7); Absolute Monocyte Count 0.69 10^3/uL (0.1-0.8); Absolute Neutrophil Count 3.07 10^3/uL (1.2-6.7); Basophils % 0.7; Eosinophils % 3.8; HCT 36.4 % (40.0-50.0); HGB 12.3 g/dL (13.5-17.5); Immature Grans % 0.3; Lymphocytes % 43.1; MCH 32.6 pg (27.0-33.0); MCHC 33.8 % (32.0-36.0); MCV 96.6 fL (80-95); MPV 9.5 fL (8.0-11.0); Monocytes % 9.6; Neutrophils % 42.5; Nucleated RBC 0 %; Platelet Count 165 10^3/uL (130-400); RBC 3.77 10^6/uL (4.36-5.78); RDW 14.2 % (11.8-14.1); RDW-SD 50.4 fL
[2021-07-18 09:15] LABS: Magnesium 1.5 mg/dL (1.8-2.4)
[2021-07-18 09:20] LABS: ALT 96 U/L (16-63); AST 68 U/L (15-37); Alkaline Phosphatase 82 U/L (46-116); Anion Gap 6.8 mmol/L (3-11); BUN 17 mg/dL (7-18); Bilirubin, Total 0.7 mg/dL (0.2-1.0); CO2 30.2 mmol/L (21.0-32.0); CREATININE 0.9 mg/dL (0.70-1.30); Calcium 8.3 mg/dL (8.5-10.1); Chloride 105 mmol/L (98-107); Glucose 124 mg/dL (74-106); Potassium 3.2 mmol/L (3.5-5.1); Sodium 142 mmol/L (136-145); Total Protein 6.9 g/dL (6.4-8.2)
[2021-07-18 17:56] LABS: CEA 3.8 ng/mL (See Note)
[2021-08-01] MEDS: Normal Saline Flush 10 ML SYR IVP (10:12)
[2021-08-01 10:26] LABS: Abs Immature Grans 0.02 10^3/uL (0.0-0.06); Absolute Basophil Count 0.05 10^3/uL (0.0-0.2); Absolute Eosinophil Count 0.28 10^3/uL (0.0-0.7); Absolute Lymphocyte Count 3.26 10^3/uL (1.2-3.4); Absolute Monocyte Count 0.72 10^3/uL (0.1-0.8); Absolute Neutrophil Count 3.18 10^3/uL (1.2-6.7); Basophils % 0.7; Eosinophils % 3.7; HCT 36.4 % (40.0-50.0); HGB 12.3 g/dL (13.5-17.5); Immature Grans % 0.3; Lymphocytes % 43.4; MCH 31.9 pg (27.0-33.0); MCHC 33.8 % (32.0-36.0); MCV 94.5 fL (80-95); MPV 9.8 fL (8.0-11.0); Monocytes % 9.6; Neutrophils % 42.3; Nucleated RBC 0 %; Platelet Count 187 10^3/uL (130-400); RBC 3.85 10^6/uL (4.36-5.78); RDW 13.9 % (11.8-14.1); RDW-SD 47.9 fL; WBC 7.51 10^3/uL (4.4-10.8)
[2021-08-01 10:48] LABS: Magnesium 1.4 mg/dL (1.8-2.4)
[2021-08-01 10:52] LABS: ALT 73 U/L (16-63); AST 52 U/L (15-37); Alkaline Phosphatase 78 U/L (46-116); Anion Gap 5.9 mmol/L (3-11); BUN 14 mg/dL (7-18); Bilirubin, Total 0.6 mg/dL (0.2-1.0); CO2 29.1 mmol/L (21.0-32.0); CREATININE 0.8 mg/dL (0.70-1.30); Calcium 8.3 mg/dL (8.5-10.1); Chloride 104 mmol/L (98-107); Glucose 92 mg/dL (74-106); Potassium 3.6 mmol/L (3.5-5.1); Sodium 139 mmol/L (136-145); Total Protein 7.2 g/dL (6.4-8.2)
[2021-08-01 17:54] LABS: CEA 4.8 ng/mL (See Note)
== END 2021-08-14 23:59 | disposition home or self-care (01) ==
LOC: INF 04:32
PROVIDERS: PCP Family Medicine; Visit Provider Internal Medicine Hematology & Oncology
DX: C20 Malignant neoplasm of rectum (principal); C78.00 Secondary malignant neoplasm of unspecified lung; Z45.2 Encounter for adjustment and management of vascular access device
CPT/HCPCS: 36591; 80053; 82378; 83735; 85025

== ENCOUNTER 2021-09-12 00:56 | Outpatient (RCR) | payer MEDICARE, SELFPAY ==
[2021-08-15] MEDS: Normal Saline Flush 10 ML SYR IVP (09:04)
[2021-08-15 09:06] LABS: Abs Immature Grans 0.01 10^3/uL (0.0-0.06); Absolute Basophil Count 0.04 10^3/uL (0.0-0.2); Absolute Eosinophil Count 0.23 10^3/uL (0.0-0.7); Absolute Lymphocyte Count 2.82 10^3/uL (1.2-3.4); Absolute Monocyte Count 0.58 10^3/uL (0.1-0.8); Absolute Neutrophil Count 2.49 10^3/uL (1.2-6.7); Basophils % 0.6; Eosinophils % 3.7; HCT 36.8 % (40.0-50.0); HGB 12.5 g/dL (13.5-17.5); Immature Grans % 0.2; Lymphocytes % 45.7; MCH 32.7 pg (27.0-33.0); MCV 96.3 fL (80-95); MPV 9.2 fL (8.0-11.0); Monocytes % 9.4; Neutrophils % 40.4; Nucleated RBC 0 %; Platelet Count 177 10^3/uL (130-400); RBC 3.82 10^6/uL (4.36-5.78); RDW 13.7 % (11.8-14.1); RDW-SD 48.9 fL; WBC 6.17 10^3/uL (4.4-10.8)
[2021-08-15 09:21] LABS: ALT 68 U/L (16-63); AST 54 U/L (15-37); Albumin 2.7 g/dL (3.4-5.0); Alkaline Phosphatase 78 U/L (46-116); Anion Gap 7.3 mmol/L (3-11); BUN 24 mg/dL (7-18); Bilirubin, Total 0.6 mg/dL (0.2-1.0); CO2 28.7 mmol/L (21.0-32.0); Calcium 8.8 mg/dL (8.5-10.1); Chloride 106 mmol/L (98-107); Glucose 93 mg/dL (74-106); Magnesium 1.9 mg/dL (1.8-2.4); Potassium 3.8 mmol/L (3.5-5.1); Sodium 142 mmol/L (136-145); Total Protein 6.8 g/dL (6.4-8.2)
[2021-08-15 17:47] LABS: CEA 21.4 ng/mL (See Note)
[2021-08-29] MEDS: Normal Saline Flush 10 ML SYR IVP (09:33)
[2021-08-29 09:40] LABS: Abs Immature Grans 0.02 10^3/uL (0.0-0.06); Absolute Basophil Count 0.04 10^3/uL (0.0-0.2); Absolute Eosinophil Count 0.25 10^3/uL (0.0-0.7); Absolute Lymphocyte Count 2.92 10^3/uL (1.2-3.4); Absolute Monocyte Count 0.66 10^3/uL (0.1-0.8); Basophils % 0.6; Eosinophils % 3.7; HCT 38.3 % (40.0-50.0); HGB 12.5 g/dL (13.5-17.5); Immature Grans % 0.3; MCH 31.2 pg (27.0-33.0); MCHC 32.6 % (32.0-36.0); MCV 95.5 fL (80-95); MPV 9.6 fL (8.0-11.0); Monocytes % 9.7; Neutrophils % 42.7; Nucleated RBC 0 %; Platelet Count 153 10^3/uL (130-400); RBC 4.01 10^6/uL (4.36-5.78); RDW 14.1 % (11.8-14.1); RDW-SD 49.2 fL; WBC 6.79 10^3/uL (4.4-10.8)
[2021-08-29 09:49] LABS: ALT 103 U/L (16-63); AST 87 U/L (15-37); Albumin 2.9 g/dL (3.4-5.0); Alkaline Phosphatase 77 U/L (46-116); Anion Gap 5.2 mmol/L (3-11); BUN 18 mg/dL (7-18); Bilirubin, Total 0.7 mg/dL (0.2-1.0); CO2 29.8 mmol/L (21.0-32.0); CREATININE 1.1 mg/dL (0.70-1.30); Calcium 8.8 mg/dL (8.5-10.1); Chloride 106 mmol/L (98-107); Glucose 103 mg/dL (74-106); Magnesium 1.9 mg/dL (1.8-2.4); Potassium 3.9 mmol/L (3.5-5.1); Sodium 141 mmol/L (136-145); Total Protein 6.8 g/dL (6.4-8.2)
[2021-09-12] MEDS: Normal Saline Flush 10 ML SYR IVP (12:04)
[2021-09-12 12:13] LABS: Abs Immature Grans 0.03 10^3/uL (0.0-0.06); Absolute Basophil Count 0.04 10^3/uL (0.0-0.2); Absolute Eosinophil Count 0.18 10^3/uL (0.0-0.7); Absolute Lymphocyte Count 3.71 10^3/uL (1.2-3.4); Absolute Monocyte Count 0.66 10^3/uL (0.1-0.8); Absolute Neutrophil Count 4.04 10^3/uL (1.2-6.7); Basophils % 0.5; Eosinophils % 2.1; HCT 39.3 % (40.0-50.0); HGB 13.1 g/dL (13.5-17.5); Immature Grans % 0.3; Lymphocytes % 42.8; MCH 31.7 pg (27.0-33.0); MCHC 33.3 % (32.0-36.0); MCV 95.2 fL (80-95); MPV 9.8 fL (8.0-11.0); Monocytes % 7.6; Neutrophils % 46.7; Nucleated RBC 0 %; Platelet Count 165 10^3/uL (130-400); RBC 4.13 10^6/uL (4.36-5.78); RDW 13.8 % (11.8-14.1); RDW-SD 48.6 fL; WBC 8.66 10^3/uL (4.4-10.8)
[2021-09-12 12:23] LABS: Magnesium 1.6 mg/dL (1.8-2.4)
== END 2021-09-14 23:59 | disposition home or self-care (01) ==
LOC: INF 00:56
PROVIDERS: PCP Family Medicine; Visit Provider Internal Medicine Hematology & Oncology
DX: C20 Malignant neoplasm of rectum (principal); C78.00 Secondary malignant neoplasm of unspecified lung; Z45.2 Encounter for adjustment and management of vascular access device
CPT/HCPCS: 36591; 80053; 82378; 83735; 85025

== ENCOUNTER 2021-10-10 00:50 | Outpatient (RCR) | payer MEDICARE, SELFPAY ==
[2021-09-26] MEDS: Normal Saline Flush 10 ML SYR IVP (11:56)
[2021-09-26 12:03] LABS: Abs Immature Grans 0.03 10^3/uL (0.0-0.06); Absolute Basophil Count 0.05 10^3/uL (0.0-0.2); Absolute Eosinophil Count 0.24 10^3/uL (0.0-0.7); Absolute Lymphocyte Count 3.47 10^3/uL (1.2-3.4); Absolute Monocyte Count 0.76 10^3/uL (0.1-0.8); Absolute Neutrophil Count 3.77 10^3/uL (1.2-6.7); Basophils % 0.6; Eosinophils % 2.9; HCT 37.9 % (40.0-50.0); HGB 12.8 g/dL (13.5-17.5); Immature Grans % 0.4; Lymphocytes % 41.7; MCH 31.8 pg (27.0-33.0); MCHC 33.8 % (32.0-36.0); MPV 9.3 fL (8.0-11.0); Monocytes % 9.1; Neutrophils % 45.3; Nucleated RBC 0 %; Platelet Count 177 10^3/uL (130-400); RBC 4.03 10^6/uL (4.36-5.78); RDW 14.3 % (11.8-14.1); RDW-SD 49.9 fL; WBC 8.32 10^3/uL (4.4-10.8)
[2021-09-26 12:18] LABS: BUN 17 mg/dL (7-18); Calcium 8.6 mg/dL (8.5-10.1); Glucose 98 mg/dL (74-106)
[2021-09-26 12:19] LABS: ALT 92 U/L (16-63); AST 74 U/L (15-37); Alkaline Phosphatase 83 U/L (46-116); Anion Gap 7.2 mmol/L (3-11); Bilirubin, Total 0.6 mg/dL (0.2-1.0); CO2 29.8 mmol/L (21.0-32.0); CREATININE 0.8 mg/dL (0.70-1.30); Chloride 104 mmol/L (98-107); Magnesium 1.4 mg/dL (1.8-2.4); Potassium 3.7 mmol/L (3.5-5.1); Sodium 141 mmol/L (136-145); Total Protein 6.9 g/dL (6.4-8.2)
[2021-09-26 23:06] LABS: CEA 5.8 ng/mL (See Note)
[2021-10-10] MEDS: Normal Saline Flush 10 ML SYR IVP (09:33)
[2021-10-10 09:39] LABS: Abs Immature Grans 0.02 10^3/uL (0.0-0.06); Absolute Basophil Count 0.03 10^3/uL (0.0-0.2); Absolute Eosinophil Count 0.25 10^3/uL (0.0-0.7); Absolute Monocyte Count 0.69 10^3/uL (0.1-0.8); Absolute Neutrophil Count 2.95 10^3/uL (1.2-6.7); Basophils % 0.4; Eosinophils % 3.7; HCT 38.2 % (40.0-50.0); Immature Grans % 0.3; Lymphocytes % 42.4; MCH 31.5 pg (27.0-33.0); MCV 92.5 fL (80-95); MPV 9.7 fL (8.0-11.0); Monocytes % 10.1; Neutrophils % 43.1; Nucleated RBC 0 %; Platelet Count 173 10^3/uL (130-400); RBC 4.13 10^6/uL (4.36-5.78); RDW 14.6 % (11.8-14.1); RDW-SD 49.5 fL; WBC 6.84 10^3/uL (4.4-10.8)
[2021-10-10 09:49] LABS: ALT 81 U/L (16-63); AST 64 U/L (15-37); Alkaline Phosphatase 83 U/L (46-116); Anion Gap 8.6 mmol/L (3-11); BUN 21 mg/dL (7-18); Bilirubin, Total 0.6 mg/dL (0.2-1.0); CO2 28.4 mmol/L (21.0-32.0); CREATININE 1.1 mg/dL (0.70-1.30); Calcium 8.3 mg/dL (8.5-10.1); Chloride 104 mmol/L (98-107); Glucose 105 mg/dL (74-106); Magnesium 1.2 mg/dL (1.8-2.4); Potassium 3.2 mmol/L (3.5-5.1); Sodium 141 mmol/L (136-145); Total Protein 6.7 g/dL (6.4-8.2)
== END 2021-10-14 23:59 | disposition home or self-care (01) ==
LOC: INF 00:50
PROVIDERS: PCP Family Medicine; Visit Provider Internal Medicine Hematology & Oncology
DX: C20 Malignant neoplasm of rectum (principal); Z45.2 Encounter for adjustment and management of vascular access device; C78.00 Secondary malignant neoplasm of unspecified lung
CPT/HCPCS: 36591; 80053; 82378; 83735; 85025

== ENCOUNTER 2021-11-10 03:34 | Outpatient (RCR) | payer MEDICARE, SELFPAY ==
[2021-10-24] MEDS: Normal Saline Flush 10 ML SYR IVP (11:33)
[2021-10-24 11:37] LABS: Abs Immature Grans 0.02 10^3/uL (0.0-0.06); Absolute Basophil Count 0.07 10^3/uL (0.0-0.2); Absolute Eosinophil Count 0.21 10^3/uL (0.0-0.7); Absolute Lymphocyte Count 2.98 10^3/uL (1.2-3.4); Absolute Monocyte Count 0.63 10^3/uL (0.1-0.8); Absolute Neutrophil Count 3.43 10^3/uL (1.2-6.7); Eosinophils % 2.9; HCT 39.2 % (40.0-50.0); HGB 12.8 g/dL (13.5-17.5); Immature Grans % 0.3; Lymphocytes % 40.6; MCH 31.3 pg (27.0-33.0); MCHC 32.7 % (32.0-36.0); MCV 95.8 fL (80-95); MPV 9.6 fL (8.0-11.0); Monocytes % 8.6; Neutrophils % 46.6; Nucleated RBC 0 %; Platelet Count 161 10^3/uL (130-400); RBC 4.09 10^6/uL (4.36-5.78); RDW 14.7 % (11.8-14.1); RDW-SD 52.3 fL; WBC 7.34 10^3/uL (4.4-10.8)
[2021-10-24 11:50] LABS: ALT 69 U/L (16-63); AST 53 U/L (15-37); Albumin 3.1 g/dL (3.4-5.0); Alkaline Phosphatase 76 U/L (46-116); BUN 22 mg/dL (7-18); Bilirubin, Total 0.5 mg/dL (0.2-1.0); CREATININE 0.9 mg/dL (0.70-1.30); Calcium 8.6 mg/dL (8.5-10.1); Chloride 106 mmol/L (98-107); Glucose 108 mg/dL (74-106); Magnesium 1.7 mg/dL (1.8-2.4); Potassium 4.4 mmol/L (3.5-5.1); Sodium 140 mmol/L (136-145); Total Protein 6.8 g/dL (6.4-8.2)
[2021-10-24 17:42] LABS: CEA 11.8 ng/mL (See Note)
[2021-11-10] MEDS: Normal Saline Flush 10 ML SYR IVP (09:04)
[2021-11-10 09:14] LABS: Abs Immature Grans 0.02 10^3/uL (0.0-0.06); Absolute Basophil Count 0.04 10^3/uL (0.0-0.2); Absolute Eosinophil Count 0.27 10^3/uL (0.0-0.7); Absolute Lymphocyte Count 3.25 10^3/uL (1.2-3.4); Absolute Monocyte Count 0.57 10^3/uL (0.1-0.8); Absolute Neutrophil Count 3.08 10^3/uL (1.2-6.7); Basophils % 0.6; Eosinophils % 3.7; HCT 39.2 % (40.0-50.0); HGB 13.1 g/dL (13.5-17.5); Immature Grans % 0.3; MCHC 33.4 % (32.0-36.0); MCV 95.8 fL (80-95); MPV 9.5 fL (8.0-11.0); Monocytes % 7.9; Neutrophils % 42.5; Nucleated RBC 0 %; Platelet Count 164 10^3/uL (130-400); RBC 4.09 10^6/uL (4.36-5.78); RDW 14.6 % (11.8-14.1); RDW-SD 51.4 fL; WBC 7.23 10^3/uL (4.4-10.8)
[2021-11-10 09:31] LABS: ALT 74 U/L (16-63); AST 53 U/L (15-37); Alkaline Phosphatase 72 U/L (46-116); Anion Gap 7.7 mmol/L (3-11); BUN 25 mg/dL (7-18); Bilirubin, Total 0.5 mg/dL (0.2-1.0); CO2 28.3 mmol/L (21.0-32.0); CREATININE 0.9 mg/dL (0.70-1.30); Calcium 8.7 mg/dL (8.5-10.1); Chloride 102 mmol/L (98-107); Glucose 108 mg/dL (74-106); Magnesium 1.7 mg/dL (1.8-2.4); Potassium 3.8 mmol/L (3.5-5.1); Sodium 138 mmol/L (136-145); Total Protein 6.8 g/dL (6.4-8.2)
[2021-11-10 17:56] LABS: CEA 9.5 ng/mL (See Note)
== END 2021-11-14 23:59 | disposition home or self-care (01) ==
LOC: INF 03:34
PROVIDERS: PCP Family Medicine; Visit Provider Internal Medicine Hematology & Oncology
DX: C78.00 Secondary malignant neoplasm of unspecified lung (principal); C20 Malignant neoplasm of rectum; Z45.2 Encounter for adjustment and management of vascular access device
CPT/HCPCS: 36591; 80053; 82378; 83735; 85025

== ENCOUNTER 2021-12-04 01:37 | Outpatient (RCR) | payer MEDICARE, SELFPAY ==
[2021-11-28] MEDS: Normal Saline Flush 10 ML SYR IVP (08:33)
[2021-11-28 08:40] LABS: Abs Immature Grans 0.02 10^3/uL (0.0-0.06); Absolute Basophil Count 0.06 10^3/uL (0.0-0.2); Absolute Eosinophil Count 0.23 10^3/uL (0.0-0.7); Absolute Lymphocyte Count 2.95 10^3/uL (1.2-3.4); Absolute Monocyte Count 0.78 10^3/uL (0.1-0.8); Absolute Neutrophil Count 2.86 10^3/uL (1.2-6.7); Basophils % 0.9; Eosinophils % 3.3; HCT 39.1 % (40.0-50.0); HGB 12.9 g/dL (13.5-17.5); Immature Grans % 0.3; Lymphocytes % 42.8; MCH 31.5 pg (27.0-33.0); MCV 95.4 fL (80-95); MPV 9.4 fL (8.0-11.0); Monocytes % 11.3; Neutrophils % 41.4; Nucleated RBC 0 %; Platelet Count 183 10^3/uL (130-400); RDW 14.4 % (11.8-14.1); RDW-SD 50.4 fL
[2021-11-28 08:52] LABS: ALT 66 U/L (16-63); AST 53 U/L (15-37); Albumin 2.8 g/dL (3.4-5.0); Alkaline Phosphatase 76 U/L (46-116); Anion Gap 9.2 mmol/L (3-11); BUN 23 mg/dL (7-18); Bilirubin, Total 0.5 mg/dL (0.2-1.0); CO2 26.8 mmol/L (21.0-32.0); CREATININE 1.2 mg/dL (0.70-1.30); Calcium 8.7 mg/dL (8.5-10.1); Chloride 103 mmol/L (98-107); Estimated GFR 57.68 (mL/min/1.73m2); Glucose 102 mg/dL (74-106); Magnesium 1.1 mg/dL (1.8-2.4); Potassium 3.5 mmol/L (3.5-5.1); Sodium 139 mmol/L (136-145); Total Protein 6.6 g/dL (6.4-8.2)
[2021-11-28 18:20] LABS: CEA 9.1 ng/mL (See Note)
[2021-12-04] MEDS: Normal Saline Flush 10 ML SYR IVP (08:32)
[2021-12-04 08:39] LABS: Abs Immature Grans 0.02 10^3/uL (0.0-0.06); Absolute Basophil Count 0.05 10^3/uL (0.0-0.2); Absolute Eosinophil Count 0.25 10^3/uL (0.0-0.7); Absolute Monocyte Count 0.71 10^3/uL (0.1-0.8); Absolute Neutrophil Count 2.71 10^3/uL (1.2-6.7); Basophils % 0.7; Eosinophils % 3.6; HCT 39.9 % (40.0-50.0); HGB 13.1 g/dL (13.5-17.5); Immature Grans % 0.3; Lymphocytes % 46.1; MCH 31.6 pg (27.0-33.0); MCHC 32.8 % (32.0-36.0); MCV 96.4 fL (80-95); MPV 9.3 fL (8.0-11.0); Monocytes % 10.2; Neutrophils % 39.1; Nucleated RBC 0 %; Platelet Count 173 10^3/uL (130-400); RBC 4.14 10^6/uL (4.36-5.78); RDW 14.3 % (11.8-14.1); RDW-SD 50.8 fL; WBC 6.94 10^3/uL (4.4-10.8)
[2021-12-04 08:46] LABS: ALT 73 U/L (16-63); AST 63 U/L (15-37); Alkaline Phosphatase 78 U/L (46-116); Anion Gap 7.9 mmol/L (3-11); BUN 22 mg/dL (7-18); Bilirubin, Total 0.7 mg/dL (0.2-1.0); CO2 27.1 mmol/L (21.0-32.0); CREATININE 1.1 mg/dL (0.70-1.30); Chloride 105 mmol/L (98-107); Glucose 105 mg/dL (74-106); Magnesium 1.7 mg/dL (1.8-2.4); Potassium 4.3 mmol/L (3.5-5.1); Sodium 140 mmol/L (136-145); Total Protein 6.9 g/dL (6.4-8.2)
== END 2021-12-15 23:59 | disposition home or self-care (01) ==
LOC: INF 01:37
PROVIDERS: PCP Family Medicine; Visit Provider Internal Medicine Hematology & Oncology
DX: C20 Malignant neoplasm of rectum (principal); C79.9 Secondary malignant neoplasm of unspecified site; Z45.2 Encounter for adjustment and management of vascular access device
CPT/HCPCS: 36591; 80053; 82378; 83735; 85025

== ENCOUNTER 2022-01-09 03:21 | Outpatient (RCR) | payer MEDICARE, SELFPAY ==
[2021-12-24] MEDS: Normal Saline Flush 10 ML SYR IVP (08:34)
[2021-12-24 08:53] LABS: Abs Immature Grans 0.02 10^3/uL (0.0-0.06); Absolute Basophil Count 0.05 10^3/uL (0.0-0.2); Absolute Eosinophil Count 0.31 10^3/uL (0.0-0.7); Absolute Lymphocyte Count 3.05 10^3/uL (1.2-3.4); Absolute Monocyte Count 0.78 10^3/uL (0.1-0.8); Absolute Neutrophil Count 3.64 10^3/uL (1.2-6.7); Basophils % 0.6; Eosinophils % 3.9; HCT 39.7 % (40.0-50.0); HGB 13.1 g/dL (13.5-17.5); Immature Grans % 0.3; Lymphocytes % 38.9; MCH 31.5 pg (27.0-33.0); MCV 95.4 fL (80-95); Monocytes % 9.9; Neutrophils % 46.4; Nucleated RBC 0 %; Platelet Count 168 10^3/uL (130-400); RBC 4.16 10^6/uL (4.36-5.78); RDW 14.4 % (11.8-14.1); RDW-SD 50.1 fL; WBC 7.85 10^3/uL (4.4-10.8)
[2021-12-24 09:14] LABS: ALT 72 U/L (16-63); AST 56 U/L (15-37); Alkaline Phosphatase 73 U/L (46-116); Anion Gap 8.2 mmol/L (3-11); BUN 19 mg/dL (7-18); Bilirubin, Total 0.5 mg/dL (0.2-1.0); CO2 26.8 mmol/L (21.0-32.0); CREATININE 0.9 mg/dL (0.70-1.30); Calcium 8.8 mg/dL (8.5-10.1); Chloride 104 mmol/L (98-107); Glucose 94 mg/dL (74-106); Magnesium 1.6 mg/dL (1.8-2.4); Potassium 4.1 mmol/L (3.5-5.1); Sodium 139 mmol/L (136-145)
[2021-12-24 22:28] LABS: CEA 16.1 ng/mL (See Note)
== END 2022-01-12 23:59 | disposition home or self-care (01) ==
LOC: INF 03:21
PROVIDERS: PCP Family Medicine; Visit Provider Internal Medicine Hematology & Oncology
DX: C20 Malignant neoplasm of rectum (principal); C79.9 Secondary malignant neoplasm of unspecified site; Z45.2 Encounter for adjustment and management of vascular access device
CPT/HCPCS: 36591; 80053; 82378; 83735; 85025

== ENCOUNTER 2022-01-30 00:56 | Outpatient (RCR) | payer MEDICARE, SELFPAY ==
--- OUTSIDE RECORDS SUMMARY | 2022-01-16 01:12 | XMS_ITS ---
:1935 Author Organization [facility] Address [address] [place] [address] Care Team Providers Name Role Phone Lab or DI, Non [facility] Unavailable Unavailable PROBLEMS Unknown Problems ALLERGIES No Known Allergies ENCOUNTERS [place] [address] Apr IMMUNIZATIONS No Known Immunizations SOCIAL HISTORY Never Assessed REASON FOR REFERRAL FUNCTIONAL STATUS PLAN OF CARE VITAL SIGNS MEDICATIONS Unknown Medications PROCEDURES No Known procedures RESULTS Name Result Date Reference Range CT Abd/Pelvis w/ ([id number]) 2020-09-03 See Below For Report CT Chest w/ ([id number]) 2020-09-03 See Below For Report CT Abd/Pelvis w/ ([id number]) 2020-06-24 See Below For Report CT Chest w/ ([id number]) 2020-06-24 See Below For Report CT Abd/Pelvis w/ ([id number]) 2020-04-25 See Below For Report CT Chest w/ ([id number]) 2020-04-25 See Below For Report CBC WITH [...] CEA 5.00 0.10-3.00 LTL TEST PERFORMED AT: [facility] [address] [place] [address] CLIA # [id number] COMPMET 2020-04-22 GLUC 90 74-106 BUN 19 7-25 CREATS 0.77 0.70-1.30 EGFR >60 >=60 NA 140 136-144 K+ 3.4 3.5-5.1 CL 105 98-110 CO2 26 22-32 CA 8.5 8.6-10.3 TP 6.8 6.0-8.3 ALB 3.5 3.4-5.0 TBIL 0.3 0.3-1.2 DBIL 0.1 0.0-0.2 ALKP 54 34-104 AST 26 13-39 ALT 22 7-52 CT Abd/Pelvis w/ ([id number]) 2020-03-11 See Below For Report CT Abd/Pelvis w/ ([id number]) 2019-12-21 See Below For Report CT Chest w/ ([id number]) 2019-12-21 See Below For Report REASON FOR VISIT blood work Insurance Providers [facility] Health Member Patient Patient Patient Patient Patient Subscriber Subscriber Subscriber Group Insurance Plan Plan Plan Plan ID Relationship Address Phone Name Date of ID Name Date of No Type Insurance Insurance Insurance Coverage to Subscriber Address Phone Name Dates SELF PAY ANY STRE[address] SELF PAY self BRITTANI [id number] [place] [id number] MEDICARE MEDICARE [address] MEDICARE self BRITTANI [id number] [facility] [id number]
--- OUTSIDE RECORDS SUMMARY | 2022-01-16 01:12 | XMS_ITS ---
:1935 Author Organization [facility] Address [address] [place] [address] Care Team Providers Name Role Phone Lab or DI, Non [facility] Unavailable Unavailable PROBLEMS Unknown Problems ALLERGIES No Known Allergies ENCOUNTERS Encounter [place] [address] Apr IMMUNIZATIONS No Known Immunizations SOCIAL HISTORY Never Assessed REASON FOR REFERRAL FUNCTIONAL STATUS PLAN OF CARE VITAL SIGNS MEDICATIONS Unknown Medications PROCEDURES No Known procedures RESULTS Name Result Date Reference Range CT Abd/Pelvis w/ ([id number]) 2020-09-03 See Below For Report CT Chest w/ ([id number]) 2020-09-03 See Below For Report CT Abd/Pelvis w/ ([id number]) 2020-06-24 See Below For Report CT Chest w/ ([id number]) 2020-06-24 See Below For Report CT Abd/Pelvis w/ ([id number]) 2020-04-25 See Below For Report CT Chest w/ ([id number]) 2020-04-25 See Below For Report CBC WITH [...] CEA 5.00 0.10-3.00 LTL TEST PERFORMED AT: [facility] [address] [place] [address] CLIA # [id number] COMPMET 2020-04-22 GLUC 90 74-106 BUN 19 7-25 CREATS 0.77 0.70-1.30 EGFR >60 >=60 NA 140 136-144 K+ 3.4 3.5-5.1 CL 105 98-110 CO2 26 22-32 CA 8.5 8.6-10.3 TP 6.8 6.0-8.3 ALB 3.5 3.4-5.0 TBIL 0.3 0.3-1.2 DBIL 0.1 0.0-0.2 ALKP 54 34-104 AST 26 13-39 ALT 22 7-52 CT Abd/Pelvis w/ ([id number]) 2020-03-11 See Below For Report CT Abd/Pelvis w/ ([id number]) 2019-12-21 See Below For Report CT Chest w/ ([id number]) 2019-12-21 See Below For Report REASON FOR VISIT blood work Insurance Providers [facility] Health Member Patient Patient Patient Patient Patient Subscriber Subscriber Subscriber Group Insurance Plan Plan Plan Plan ID Relationship Address Phone Name Date of ID Name Date of No Type Insurance Insurance Insurance Coverage to Subscriber Address Phone Name Dates SELF PAY ANY ST[address] SELF PAY self BRITTANI [id number] [place] [id number] MEDICARE MEDICARE [address] MEDICARE self BRITTANI [id number] [facility] [id number]
[2022-01-16] MEDS: Normal Saline Flush 10 ML SYR IVP (08:30)
[2022-01-16 08:36] LABS: Abs Immature Grans 0.01 10^3/uL (0.0-0.06); Absolute Basophil Count 0.05 10^3/uL (0.0-0.2); Absolute Eosinophil Count 0.26 10^3/uL (0.0-0.7); Absolute Lymphocyte Count 3.36 10^3/uL (1.2-3.4); Absolute Monocyte Count 0.83 10^3/uL (0.1-0.8); Absolute Neutrophil Count 3.21 10^3/uL (1.2-6.7); Basophils % 0.6; Eosinophils % 3.4; HCT 39.7 % (40.0-50.0); HGB 13.1 g/dL (13.5-17.5); Immature Grans % 0.1; Lymphocytes % 43.5; MCH 31.6 pg (27.0-33.0); MCV 95.9 fL (80-95); MPV 9.4 fL (8.0-11.0); Monocytes % 10.8; Neutrophils % 41.6; Nucleated RBC 0 %; Platelet Count 159 10^3/uL (130-400); RBC 4.14 10^6/uL (4.36-5.78); RDW 14.2 % (11.8-14.1); WBC 7.72 10^3/uL (4.4-10.8)
[2022-01-16 08:52] LABS: ALT 65 U/L (16-63); AST 56 U/L (15-37); Albumin 2.9 g/dL (3.4-5.0); Alkaline Phosphatase 84 U/L (46-116); Anion Gap 8.2 mmol/L (3-11); BUN 21 mg/dL (7-18); Bilirubin, Total 0.6 mg/dL (0.2-1.0); CO2 26.8 mmol/L (21.0-32.0); Chloride 107 mmol/L (98-107); Glucose 106 mg/dL (74-106); Magnesium 1.8 mg/dL (1.8-2.4); Potassium 4.1 mmol/L (3.5-5.1); Sodium 142 mmol/L (136-145); Total Protein 6.7 g/dL (6.4-8.2)
[2022-01-16 18:42] LABS: CEA 22.7 ng/mL (See Note)
[2022-01-30] MEDS: Normal Saline Flush 10 ML SYR IVP (10:00)
[2022-01-30 10:08] LABS: Abs Immature Grans 0.03 10^3/uL (0.0-0.06); Absolute Basophil Count 0.06 10^3/uL (0.0-0.2); Absolute Eosinophil Count 0.42 10^3/uL (0.0-0.7); Absolute Lymphocyte Count 3.48 10^3/uL (1.2-3.4); Absolute Monocyte Count 0.84 10^3/uL (0.1-0.8); Absolute Neutrophil Count 2.87 10^3/uL (1.2-6.7); Basophils % 0.8; Eosinophils % 5.5; HCT 39.8 % (40.0-50.0); HGB 13.1 g/dL (13.5-17.5); Immature Grans % 0.4; Lymphocytes % 45.2; MCH 31.6 pg (27.0-33.0); MCHC 32.9 % (32.0-36.0); MCV 95.9 fL (80-95); MPV 9.4 fL (8.0-11.0); Monocytes % 10.9; Neutrophils % 37.2; Nucleated RBC 0 %; Platelet Count 155 10^3/uL (130-400); RBC 4.15 10^6/uL (4.36-5.78); RDW 14.3 % (11.8-14.1); RDW-SD 50.4 fL
[2022-01-30 10:24] LABS: ALT 65 U/L (16-63); AST 52 U/L (15-37); Alkaline Phosphatase 77 U/L (46-116); Anion Gap 8.6 mmol/L (3-11); BUN 27 mg/dL (7-18); Bilirubin, Total 0.7 mg/dL (0.2-1.0); CO2 26.4 mmol/L (21.0-32.0); Calcium 8.5 mg/dL (8.5-10.1); Chloride 105 mmol/L (98-107); Glucose 109 mg/dL (74-106); Magnesium 1.6 mg/dL (1.8-2.4); Potassium 4.3 mmol/L (3.5-5.1); Sodium 140 mmol/L (136-145); Total Protein 6.9 g/dL (6.4-8.2)
[2022-01-30 18:58] LABS: CEA 20.3 ng/mL (See Note)
== END 2022-02-12 23:59 | disposition home or self-care (01) ==
LOC: INF 00:56
PROVIDERS: PCP Family Medicine; Visit Provider Internal Medicine Hematology & Oncology
DX: C20 Malignant neoplasm of rectum (principal); C79.9 Secondary malignant neoplasm of unspecified site; Z45.2 Encounter for adjustment and management of vascular access device
CPT/HCPCS: 36591; 80053; 82378; 83735; 85025

== ENCOUNTER 2022-03-13 01:12 | Outpatient (RCR) | payer MEDICARE, SELFPAY ==
--- OUTSIDE RECORDS SUMMARY | 2022-02-13 01:06 | XMS_ITS ---
:1935 Author Organization [facility] Address [address] [place] [address] Care Team Providers Name Role Phone Lab or DI, Non [facility] Unavailable Unavailable PROBLEMS Unknown Problems ALLERGIES No Known Allergies ENCOUNTERS [place] [address] Apr IMMUNIZATIONS No Known Immunizations SOCIAL HISTORY Never Assessed REASON FOR REFERRAL FUNCTIONAL STATUS PLAN OF CARE VITAL SIGNS MEDICATIONS Unknown Medications PROCEDURES No Known procedures RESULTS Name Result Date Reference Range CT Abd/Pelvis w/ ([id number]) 2020-09-03 See Below For Report CT Chest w/ ([id number]) 2020-09-03 See Below For Report CT Abd/Pelvis w/ ([id number]) 2020-06-24 See Below For Report CT Chest w/ ([id number]) 2020-06-24 See Below For Report CT Abd/Pelvis w/ ([id number]) 2020-04-25 See Below For Report CT Chest w/ ([id number]) 2020-04-25 See Below For Report CBC WITH [...] CEA 5.00 0.10-3.00 LTL TEST PERFORMED AT: [facility] [address] [place] [address] CLIA # [id number] COMPMET 2020-04-22 GLUC 90 74-106 BUN 19 7-25 CREATS 0.77 0.70-1.30 EGFR >60 >=60 NA 140 136-144 K+ 3.4 3.5-5.1 CL 105 98-110 CO2 26 22-32 CA 8.5 8.6-10.3 TP 6.8 6.0-8.3 ALB 3.5 3.4-5.0 TBIL 0.3 0.3-1.2 DBIL 0.1 0.0-0.2 ALKP 54 34-104 AST 26 13-39 ALT 22 7-52 CT Abd/Pelvis w/ ([id number]) 2020-03-11 See Below For Report CT Abd/Pelvis w/ ([id number]) 2019-12-21 See Below For Report CT Chest w/ ([id number]) 2019-12-21 See Below For Report REASON FOR VISIT blood work Insurance Providers [facility] Health Member Patient Patient Patient Patient Patient Subscriber Subscriber Subscriber Group Insurance Plan Plan Plan Plan ID Relationship Address Phone Name Date of ID Name Date of No Type Insurance Insurance Insurance Coverage to Subscriber Address Phone Name Dates MEDICARE [address] MEDICARE self BRITTANI [id number] [facility] [id number] SELF PAY [address] SELF PAY self BRITTANI [id number] [place] [address] MEDICARE
[2022-02-13] MEDS: Normal Saline Flush 10 ML SYR IVP (10:11)
[2022-02-13 10:21] LABS: Abs Immature Grans 0.02 10^3/uL (0.0-0.06); Absolute Basophil Count 0.06 10^3/uL (0.0-0.2); Absolute Eosinophil Count 0.35 10^3/uL (0.0-0.7); Absolute Lymphocyte Count 2.74 10^3/uL (1.2-3.4); Absolute Monocyte Count 0.69 10^3/uL (0.1-0.8); Absolute Neutrophil Count 2.98 10^3/uL (1.2-6.7); Basophils % 0.9; Eosinophils % 5.1; HCT 38.9 % (40.0-50.0); Immature Grans % 0.3; Lymphocytes % 40.1; MCH 31.9 pg (27.0-33.0); MCHC 33.4 % (32.0-36.0); MCV 95.6 fL (80-95); MPV 9.6 fL (8.0-11.0); Monocytes % 10.1; Neutrophils % 43.5; Nucleated RBC 0 %; Platelet Count 158 10^3/uL (130-400); RBC 4.07 10^6/uL (4.36-5.78); RDW 14.4 % (11.8-14.1); RDW-SD 50.4 fL; WBC 6.84 10^3/uL (4.4-10.8)
[2022-02-13 10:34] LABS: ALT 70 U/L (16-63); AST 56 U/L (15-37); Albumin 2.8 g/dL (3.4-5.0); Alkaline Phosphatase 82 U/L (46-116); Anion Gap 9.2 mmol/L (3-11); BUN 22 mg/dL (7-18); Bilirubin, Total 0.6 mg/dL (0.2-1.0); CO2 27.8 mmol/L (21.0-32.0); Calcium 8.5 mg/dL (8.5-10.1); Chloride 107 mmol/L (98-107); Glucose 103 mg/dL (74-106); Magnesium 1.4 mg/dL (1.8-2.4); Potassium 3.9 mmol/L (3.5-5.1); Sodium 144 mmol/L (136-145); Total Protein 6.7 g/dL (6.4-8.2)
[2022-02-13 19:44] LABS: CEA 16.8 ng/mL (See Note)
[2022-02-27] MEDS: Normal Saline Flush 10 ML SYR IVP (10:42)
[2022-02-27 10:44] LABS: Abs Immature Grans 0.01 10^3/uL (0.0-0.06); Absolute Basophil Count 0.04 10^3/uL (0.0-0.2); Absolute Eosinophil Count 0.47 10^3/uL (0.0-0.7); Absolute Lymphocyte Count 3.44 10^3/uL (1.2-3.4); Absolute Monocyte Count 0.77 10^3/uL (0.1-0.8); Basophils % 0.5; HCT 39.8 % (40.0-50.0); HGB 13.2 g/dL (13.5-17.5); Immature Grans % 0.1; Lymphocytes % 43.9; MCH 31.6 pg (27.0-33.0); MCHC 33.2 % (32.0-36.0); MCV 95.2 fL (80-95); MPV 9.4 fL (8.0-11.0); Monocytes % 9.8; Neutrophils % 39.7; Platelet Count 158 10^3/uL (130-400); RBC 4.18 10^6/uL (4.36-5.78); RDW 14.4 % (11.8-14.1); RDW-SD 50.1 fL; WBC 7.83 10^3/uL (4.4-10.8)
[2022-02-27 11:16] LABS: ALT 65 U/L (16-63); AST 55 U/L (15-37); Albumin 3.1 g/dL (3.4-5.0); Alkaline Phosphatase 81 U/L (46-116); Anion Gap 6.2 mmol/L (3-11); BUN 22 mg/dL (7-18); Bilirubin, Total 0.7 mg/dL (0.2-1.0); CO2 28.8 mmol/L (21.0-32.0); CREATININE 0.9 mg/dL (0.70-1.30); Calcium 8.5 mg/dL (8.5-10.1); Chloride 104 mmol/L (98-107); Glucose 106 mg/dL (74-106); Magnesium 1.4 mg/dL (1.8-2.4); Sodium 139 mmol/L (136-145); Total Protein 7.1 g/dL (6.4-8.2)
== END 2022-03-14 23:59 | disposition home or self-care (01) ==
LOC: INF 01:12
PROVIDERS: PCP Family Medicine; Visit Provider Internal Medicine Hematology & Oncology
DX: C20 Malignant neoplasm of rectum (principal); C79.9 Secondary malignant neoplasm of unspecified site; Z45.2 Encounter for adjustment and management of vascular access device
CPT/HCPCS: 36591; 80053; 82378; 83735; 85025

== ENCOUNTER 2022-04-03 01:54 | Outpatient (RCR) | payer MEDICARE, SELFPAY ==
[2022-03-20] MEDS: Normal Saline Flush 10 ML SYR IVP (12:03)
[2022-03-20 12:23] LABS: Abs Immature Grans 0.02 10^3/uL (0.0-0.06); Absolute Basophil Count 0.07 10^3/uL (0.0-0.2); Absolute Eosinophil Count 0.37 10^3/uL (0.0-0.7); Absolute Lymphocyte Count 3.51 10^3/uL (1.2-3.4); Absolute Monocyte Count 0.78 10^3/uL (0.1-0.8); Absolute Neutrophil Count 3.75 10^3/uL (1.2-6.7); Basophils % 0.8; Eosinophils % 4.4; HCT 39.8 % (40.0-50.0); HGB 13.1 g/dL (13.5-17.5); Immature Grans % 0.2; Lymphocytes % 41.3; MCH 31.2 pg (27.0-33.0); MCHC 32.9 % (32.0-36.0); MCV 95 fL (80-95); MPV 9.6 fL (8.0-11.0); Monocytes % 9.2; Neutrophils % 44.1; Platelet Count 181 10^3/uL (130-400); RDW 14.1 % (11.8-14.1); RDW-SD 48.9 fL
[2022-03-20 12:24] LABS: ALT 64 U/L (16-63); AST 52 U/L (15-37); Alkaline Phosphatase 90 U/L (46-116); Anion Gap 8.1 mmol/L (3-11); BUN 21 mg/dL (7-18); Bilirubin, Total 0.4 mg/dL (0.2-1.0); CO2 26.9 mmol/L (21.0-32.0); Calcium 8.5 mg/dL (8.5-10.1); Chloride 104 mmol/L (98-107); Glucose 102 mg/dL (74-106); Magnesium 1.4 mg/dL (1.8-2.4); Potassium 3.9 mmol/L (3.5-5.1); Sodium 139 mmol/L (136-145); Total Protein 7.3 g/dL (6.4-8.2)
[2022-03-20 23:43] LABS: CEA 21.8 ng/mL (See Note)
[2022-04-03] MEDS: Normal Saline Flush 10 ML SYR IVP (10:04)
[2022-04-03 10:18] LABS: Abs Immature Grans 0.02 10^3/uL (0.0-0.06); Absolute Basophil Count 0.04 10^3/uL (0.0-0.2); Absolute Eosinophil Count 0.34 10^3/uL (0.0-0.7); Absolute Lymphocyte Count 2.84 10^3/uL (1.2-3.4); Absolute Monocyte Count 0.64 10^3/uL (0.1-0.8); Absolute Neutrophil Count 2.81 10^3/uL (1.2-6.7); Basophils % 0.6; Eosinophils % 5.1; HCT 38.5 % (40.0-50.0); HGB 12.8 g/dL (13.5-17.5); Immature Grans % 0.3; Lymphocytes % 42.5; MCH 31.9 pg (27.0-33.0); MCHC 33.2 % (32.0-36.0); MCV 96 fL (80-95); Monocytes % 9.6; Neutrophils % 41.9; Nucleated RBC 0.3 % (0.0-0.3); Platelet Count 143 10^3/uL (130-400); RBC 4.01 10^6/uL (4.36-5.78); RDW 14.2 % (11.8-14.1); RDW-SD 50.3 fL; WBC 6.69 10^3/uL (4.4-10.8)
[2022-04-03 10:32] LABS: ALT 47 U/L (16-63); AST 41 U/L (15-37); Albumin 2.7 g/dL (3.4-5.0); Alkaline Phosphatase 79 U/L (46-116); BUN 22 mg/dL (7-18); Bilirubin, Total 0.5 mg/dL (0.2-1.0); Calcium 8.2 mg/dL (8.5-10.1); Chloride 105 mmol/L (98-107); Glucose 104 mg/dL (74-106); Magnesium 1.8 mg/dL (1.8-2.4); Potassium 3.8 mmol/L (3.5-5.1); Sodium 138 mmol/L (136-145); Total Protein 6.4 g/dL (6.4-8.2)
[2022-04-03 19:34] LABS: CEA 26.1 ng/mL (See Note)
== END 2022-04-14 23:59 | disposition home or self-care (01) ==
LOC: INF 01:54
PROVIDERS: PCP Family Medicine; Visit Provider Internal Medicine Hematology & Oncology
DX: C79.9 Secondary malignant neoplasm of unspecified site (principal); C20 Malignant neoplasm of rectum; Z45.2 Encounter for adjustment and management of vascular access device
CPT/HCPCS: 36591; 80053; 82378; 83735; 85025

== ENCOUNTER 2022-05-01 00:58 | Outpatient (RCR) | payer MEDICARE, SELFPAY ==
[2022-04-17] MEDS: Normal Saline Flush 10 ML SYR IVP (10:05)
[2022-04-17 10:18] LABS: Abs Immature Grans 0.01 10^3/uL (0.0-0.06); Absolute Basophil Count 0.04 10^3/uL (0.0-0.2); Absolute Eosinophil Count 0.34 10^3/uL (0.0-0.7); Absolute Lymphocyte Count 2.98 10^3/uL (1.2-3.4); Absolute Monocyte Count 0.67 10^3/uL (0.1-0.8); Absolute Neutrophil Count 3.26 10^3/uL (1.2-6.7); Basophils % 0.5; Eosinophils % 4.7; HGB 13.1 g/dL (13.5-17.5); Immature Grans % 0.1; Lymphocytes % 40.8; MCH 32.3 pg (27.0-33.0); MCHC 34.5 % (32.0-36.0); MCV 94 fL (80-95); MPV 9.7 fL (8.0-11.0); Monocytes % 9.2; Neutrophils % 44.7; Platelet Count 168 10^3/uL (130-400); RBC 4.06 10^6/uL (4.36-5.78); RDW 14.3 % (11.8-14.1); RDW-SD 49.1 fL
[2022-04-17 10:31] LABS: ALT 59 U/L (16-63); AST 46 U/L (15-37); Albumin 2.9 g/dL (3.4-5.0); Alkaline Phosphatase 86 U/L (46-116); BUN 26 mg/dL (7-18); Bilirubin, Total 0.7 mg/dL (0.2-1.0); Calcium 8.6 mg/dL (8.5-10.1); Chloride 103 mmol/L (98-107); Glucose 110 mg/dL (74-106); Magnesium 1.2 mg/dL (1.8-2.4); Potassium 4.1 mmol/L (3.5-5.1); Sodium 140 mmol/L (136-145); Total Protein 6.9 g/dL (6.4-8.2)
[2022-05-01] MEDS: Normal Saline Flush 10 ML SYR IVP (10:04)
[2022-05-01 10:21] LABS: Abs Immature Grans 0.01 10^3/uL (0.0-0.06); Absolute Basophil Count 0.05 10^3/uL (0.0-0.2); Absolute Eosinophil Count 0.43 10^3/uL (0.0-0.7); Absolute Lymphocyte Count 3.38 10^3/uL (1.2-3.4); Absolute Monocyte Count 0.75 10^3/uL (0.1-0.8); Absolute Neutrophil Count 3.51 10^3/uL (1.2-6.7); Basophils % 0.6; Eosinophils % 5.3; HGB 13.2 g/dL (13.5-17.5); Immature Grans % 0.1; Lymphocytes % 41.6; MCH 32.2 pg (27.0-33.0); MCHC 34.7 % (32.0-36.0); MCV 93 fL (80-95); MPV 9.7 fL (8.0-11.0); Monocytes % 9.2; Neutrophils % 43.2; Platelet Count 161 10^3/uL (130-400); RDW 14.4 % (11.8-14.1); RDW-SD 49.1 fL; WBC 8.13 10^3/uL (4.4-10.8)
[2022-05-01 10:45] LABS: ALT 68 U/L (16-63); AST 54 U/L (15-37); Albumin 2.9 g/dL (3.4-5.0); Alkaline Phosphatase 77 U/L (46-116); Anion Gap 6.9 mmol/L (3-11); BUN 17 mg/dL (7-18); Bilirubin, Total 0.5 mg/dL (0.2-1.0); CO2 28.1 mmol/L (21.0-32.0); CREATININE 0.9 mg/dL (0.70-1.30); Calcium 8.6 mg/dL (8.5-10.1); Chloride 105 mmol/L (98-107); Glucose 108 mg/dL (74-106); Magnesium 1.3 mg/dL (1.8-2.4); Sodium 140 mmol/L (136-145); Total Protein 6.9 g/dL (6.4-8.2)
[2022-05-01 19:13] LABS: CEA 30.1 ng/mL (See Note)
== END 2022-05-14 23:59 | disposition home or self-care (01) ==
LOC: INF 00:58
PROVIDERS: PCP Family Medicine; Visit Provider Internal Medicine Hematology & Oncology
DX: C79.9 Secondary malignant neoplasm of unspecified site (principal); C20 Malignant neoplasm of rectum; Z45.2 Encounter for adjustment and management of vascular access device
CPT/HCPCS: 36591; 80053; 82378; 83735; 85025

== ENCOUNTER 2022-05-15 02:06 | Outpatient (RCR) | payer MEDICARE, SELFPAY ==
[2022-05-15] MEDS: Normal Saline Flush 10 ML SYR IVP (10:05)
[2022-05-15 10:11] LABS: Abs Immature Grans 0.02 10^3/uL (0.0-0.06); Absolute Basophil Count 0.07 10^3/uL (0.0-0.2); Absolute Eosinophil Count 0.46 10^3/uL (0.0-0.7); Absolute Lymphocyte Count 3.16 10^3/uL (1.2-3.4); Absolute Monocyte Count 0.75 10^3/uL (0.1-0.8); Absolute Neutrophil Count 3.25 10^3/uL (1.2-6.7); Basophils % 0.9; HCT 38.1 % (40.0-50.0); HGB 12.9 g/dL (13.5-17.5); Immature Grans % 0.3; MCH 31.9 pg (27.0-33.0); MCHC 33.9 % (32.0-36.0); MCV 94 fL (80-95); MPV 9.3 fL (8.0-11.0); Monocytes % 9.7; Neutrophils % 42.1; Platelet Count 155 10^3/uL (130-400); RBC 4.04 10^6/uL (4.36-5.78); RDW 14.1 % (11.8-14.1); WBC 7.71 10^3/uL (4.4-10.8)
[2022-05-15 10:29] LABS: ALT 57 U/L (16-63); AST 50 U/L (15-37); Alkaline Phosphatase 70 U/L (46-116); Anion Gap 6.3 mmol/L (3-11); BUN 25 mg/dL (7-18); Bilirubin, Total 0.6 mg/dL (0.2-1.0); CO2 27.7 mmol/L (21.0-32.0); CREATININE 0.9 mg/dL (0.70-1.30); Calcium 8.9 mg/dL (8.5-10.1); Chloride 103 mmol/L (98-107); Glucose 122 mg/dL (74-106); Magnesium 1.5 mg/dL (1.8-2.4); Potassium 4.1 mmol/L (3.5-5.1); Sodium 137 mmol/L (136-145)
[2022-05-15 18:49] LABS: CEA 48.9 ng/mL (See Note)
== END 2022-06-14 23:59 | disposition home or self-care (01) ==
LOC: INF 02:06
PROVIDERS: PCP Family Medicine; Visit Provider Internal Medicine Hematology & Oncology
DX: C20 Malignant neoplasm of rectum (principal); C79.9 Secondary malignant neoplasm of unspecified site; Z45.2 Encounter for adjustment and management of vascular access device
CPT/HCPCS: 36591; 80053; 82378; 83735; 85025